=== PATIENT | male | born 1950 | race Caucasian/White ===

== ENCOUNTER 2024-01-20 02:32 | Inpatient (IN) ==
[2024-01-20] MEDS: SODIUM CHLORIDE 0.9% 500 ML IV STA (02:59)
[2024-01-20] MEDS: ASPIRIN CHEW 324 MG PO STA (03:00)
--- NOTE | 2024-01-20 03:12 | Emergency Department Note ---
Impression & Plan Chest pain, Heart disease, Left arm pain ED Provider Note CHIEF COMPLAINT: Chest pain HISTORY OF PRESENT ILLNESS: This 73-year-old male patient presents to the emergency department via private vehicle accompanied by his for evaluation of chest pain. The patient states he has been experiencing which has been more frequent for about a week. He states that today, he has had to take 8 nitroglycerin due to his pain. He states that 5 of these have been since after dinner this evening. The patient notes this morning when he woke, he had pain when he was going to do something active, but was unable to recall what he was doing. He states that then this afternoon he was climbing up onto his truck and developed pain at that time. He states he then developed pain after dinner and at bedtime, the pain returned and did not go away. He states that the pain in his chest is a burning sensation. He states that there is associated shortness of breath. He notes that the pain causes a numbness in the left arm which occasionally becomes achy. Pt. states he has had 10 stents placed in his heart at [facility] >10 years ago. He states he was told there were 2 100% blockages which are unable to be stented. He states he was supposed to see [facility] in 2020, but this appointment got cancelled due to Covid-19 pandemic. He notes he called back to [facility] but has not received a call back. Pt. denies any recent trauma or injury. REVIEW OF SYSTEMS: A 10 system review of systems was performed with positives and pertinent negatives listed in the history of present illness. All other systems were reviewed and are negative. ALLERGIES: Sulfa PHYSICAL EXAM: VITALS: Vitals are noted on the nurse's note and reviewed by myself. Vital signs stable. GENERAL: This is a 73 year old male, in no acute distress, nondiaphoretic, well- developed well-nourished. SKIN: The skin was without rashes, erythema, edema, or bruising. There is no tenting of the skin. Capillary refill less than 2 seconds. HEAD: Normocephalic atraumatic. EYES: Conjunctivae without injection, sclerae without icterus. NECK: Supple without nuchal rigidity. No lymphadenopathy. Cervical spine is nontender. No JVD. HEART: Regular rate and rhythm without murmurs gallops or rubs. LUNGS: Clear to auscultation bilaterally without wheezes, rales or rhonchi. No retractions or accessory muscle use. ABDOMEN: Positive bowel sounds x 4. Soft, nontender, without masses or organomegaly. Gardiner sign negative. No guarding or rebound tenderness. MUSCULOSKELETAL: No muscle atrophy, erythema, or edema noted. Full range of motion without joint tenderness in all extremities. No tenderness to palpation. Normal gait. Strength 5/5 throughout. NEURO: Patient was alert and oriented to person place and time. No focal neurological deficits. An order was placed for continuous medical accountant. The monitor showed a normal sinus rhythm at a ventricular rate of 65 bpm, per my interpretation. EKG was reviewed by myself and found to be normal sinus rhythm, at a rate of 63 beats per minute and per my interpretation reveals ST depression in V2-V5 with T wave inversions in V1, V2. No prior EKG available for comparison. Second EKG was completed by nursing staff due to the patient's complaint of worsening chest pain. Showed a normal sinus rhythm for ventricular rate of [address] depression and T wave inversions consistent with prior EKG. Chest x-ray. Findings: A chest x-ray was performed and revealed no pneumothorax, effusion, infiltrate, pulmonary edema, free air under the diaphragm, or wide mediastinum, per my interpretation EMERGENCY DEPARTMENT COURSE: The patient was seen and evaluated as above. The patient presents for chest pain. He has been taking nitroglycerin, noting he took about 8 doses throughout the day today. IV access was obtained, labs were drawn. Labs were reviewed. Per my interpretation, there is no leukocytosis or anemia. No thrombocytopenia. Renal, hepatic function and electrolytes without significant abnormality. Coags normal. Troponin elevated at 40.7. Lipase 18. Patient complained of worsening chest pain while here in the emergency department. Repeat EKG was obtained and was essentially unchanged. Patient had been medicated with aspirin and IV fluids. He was given Nitropaste with the complaints of recurrent chest pain. Chest x-ray as above. Per my interpretation, no acute abnormality. I discussed case with my attending physician. I did recommend admission for chest pain and positive troponin. I discussed the case with Dr. Liang, [facility] physician. He did agree to see and evaluate the patient for admission. Please see his dictation regarding ongoing management care. While in the department, I personally reevaluated the patient several times and each time the patient was found to be resting comfortably. The patient was educated upon management, educated upon todays findings/results, educated upon importance of follow up from today's visit, educated upon symptoms in which to return, had questions answered prior to discharge, verbalized understanding, and was discharged home in good condition. I attest that I have personally reviewed the patient medication list. I attest that I have reviewed the patient's blood pressure and it was found to be elevated. Referred to hospitalist for further management. GCS: 15 In the evaluation and treatment of this patient the following differential diagnoses were entertained: Cardiac ischemia, aortic dissection, pulmonary embolism, pneumothorax, pneumonia, pericarditis, myocarditis, esophageal rupture, GERD, cholecystitis, pancreatitis, musculoskeletal, as well as other pathologies. The chart was completed utilizing [employer] Speech voice recognition software. Grammatical errors, random word insertions, pronoun errors, and incomplete sentences are an occasional consequence of this system due to software limitations, ambient noise, and hardware issues. Any formal questions or concerns about the content, text, or information contained within the body of this dictation should be directly addressed to the provider for clarification. Past Med/Surg History Problem List (Updated 01/20/24 @ 04:41 by Yari Cordova PA-C) Left arm pain (Acute) Chest pain (Acute) Heart disease (Acute) Diverticula of colon Medical History Hyperlipidemia Diabetes Cardiac disease Surgical History (Updated 01/20/24 @ 03:08 by Yari Cordova PA-C) H/O heart artery stent Social History Smoking Status: Never smoker Preferred Language: Welsh Feels Safe at Home: Yes Allergies Allergies Allergy/AdvReac Type Severity Reaction Status Date / Time Sulfa (Sulfonamide AdvReac Mild liver & Verified 01/20/24 02:44 Antibiotics) kidney issues/failure, possible throat swelling Home Meds Home Medications Medication Instructions Recorded Confirmed amlodipine 2.5 mg tablet 2.5 mg PO QAM 01/20/24 01/20/24 aspirin 81 mg tablet,delayed 81 mg PO QPM 01/20/24 01/20/24 release atorvastatin 20 mg tablet 20 mg PO QPM 01/20/24 01/20/24 cholecalciferol (vitamin D3) 125 125 mcg PO WK 01/20/24 01/20/24 mcg (5,000 unit) tablet (Vitamin D3) clopidogrel 75 mg tablet 75 mg PO QAM 01/20/24 01/20/24 coenzyme Q10 100 mg capsule 100 mg PO DAILY 01/20/24 01/20/24 (CoQ-10) diclofenac sodium 1 % topical gel 2 g topical QID PRN Pain 01/20/24 01/20/24 empagliflozin 10 mg tablet 10 mg PO QAM 01/20/24 01/20/24 (Jardiance) ezetimibe 10 mg tablet 10 mg PO QAM 01/20/24 01/20/24 isosorbide dinitrate 5 mg tablet 5 mg PO DIRECTED PRN PRIOR TO 01/20/24 01/20/24 ACTIVITIES THAT PROVOKE ANGINA isosorbide mononitrate 60 mg 60 mg PO QAM 01/20/24 01/20/24 tablet,extended release 24 hr levothyroxine 50 mcg tablet 50 mcg PO DAILYBB 01/20/24 01/20/24 lisinopril 2.5 mg tablet 2.5 mg PO QAM 01/20/24 01/20/24 magnesium 250 mg tablet 250 mg PO DAILY 01/20/24 01/20/24 metoprolol succinate 100 mg 100 mg PO QPM 01/20/24 01/20/24 tablet,extended release 24 hr nitroglycerin 0.4 mg sublingual 0.4 mg sublingual DIRECTED PRN 01/20/24 01/20/24 tablet Chest Pain pantoprazole 40 mg tablet,delayed 40 mg PO DAILY PRN 01/20/24 01/20/24 release HEARTBURN/INDIGESTION ranolazine 1,000 mg 1,000 mg PO BID 01/20/24 01/20/24 tablet,extended release,12 hr turmeric root extract 500 mg tablet 500 mg PO 3XWK 01/20/24 01/20/24 Results & Data (ED) Vital Signs Vital Signs - 24 hr 01/20/24 02:36 01/20/24 02:44 Temperature 36.8 C Temperature Source Temporal Artery Scan Pulse Rate 65 65 Respiratory Rate 18 Respiratory Effort / Characteristics Non-Labored Spontaneous Respiratory Depth Normal Respiratory Pattern Regular Blood Pressure 149/79 H Blood Pressure Mean 102 Pulse Oximetry 98 Oxygen Delivery Method Room Air Sepsis Recent Fever Within 48 Hours No Sepsis New/Unexplained Change in Mental Status N/A Sepsis Action Taken by Nursing No Action Required Laboratory Data 01/20/24 02:51 01/20/24 02:51 Lab Results 01/20/24 Range/Units 02:51 WBC 10.65 (4.8-10.8) K/ul RBC 5.17 (4.70-6.10) M/uL Hgb 16.5 (14.0-18.0) g/dl Hct 49.4 (42.0-52.0) % MCV 95.6 (80.0-100.0) fL MCH 31.9 (25.0-34.0) pg MCHC 33.4 (32.0-36.0) g/dL RDW Std Deviation 47.1 H (36.4-46.3) fL RDW Coeff of Sylwia 13.2 (11.5-14.5) % Plt Count 191 (130-400) K/uL MPV 10.8 (9.4-12.4) fL Immature Gran % (Auto) 0.5 % Neut % (Auto) 87.3 % Lymph % (Auto) 7.7 % Rooks % (Auto) 4.3 % Eos % (Auto) 0.0 % Baso % (Auto) 0.2 % Neut # (Auto) 9.30 H (1.40-6.50) K/uL Lymph # (Auto) 0.82 L (1.20-3.40) K/uL Rooks # (Auto) 0.46 (0.11-0.59) K/uL Eos # (Auto) 0.00 (0.00-0.50) K/uL Baso # (Auto) 0.02 (0.00-0.20) K/uL Immature Gran # (Auto) 0.05 (0.01-0.20) K/uL PT 11.1 (9.0-12.0) Seconds INR 1.0 (0.9-1.1) APTT 24 (21-31) Seconds PTT Ratio 0.9 Sodium 139 (136-145) mmol/L Potassium 3.9 (3.5-5.1) mmol/L Chloride 104 (98-107) mmol/L Carbon Dioxide 26 (21-32) mmol/L Anion Gap 9 (3-11) BUN 22 (6-23) mg/dl Creatinine 1.28 (0.6-1.4) mg/dl Est Cr Clr Drug Dosing 54.7 ml/min Est GFR ( Amer) 64.8 ml/min Est GFR (Non-Af Amer) 55.9 ml/min BUN/Creatinine Ratio 17.2 (10-20) Glucose 163 H (70-99(Fasting)) mg/dl Calcium 9.9 (8.6-10.3) mg/dl Total Bilirubin 1.0 (0.2-1.0) mg/dl AST 15 (13-39) U/L ALT 18 (7-52) U/L Alkaline Phosphatase 64 (34-104) U/L Troponin I High Sens 40.7 H (0-20) pg/ml Total Protein 6.9 (6.0-8.3) gm/dl Albumin 4.5 (3.4-5.0) gm/dl Globulin 2.4 L (2.5-4.0) gm/dl Albumin/Globulin Ratio 1.9 (0.9-2) Lipase 18 (11-82) U/L Administered Medications Discontinued Medications Aspirin (Aspirin Chew 324 Mg) 324 mg PO NOW STA Stop: 01/20/24 02:52 Last Admin: 01/20/24 03:00 Dose: 324 mg Documented By: FELICIANO Sodium Chloride (Nss) 500 mls @ 999 mls/hr IV .Q31M STA Stop: 01/20/24 03:21 Last Infusion: 01/20/24 03:37 Dose: Infused Documented By: Admin: 01/20/24 02:59 Dose: 999 mls/hr Documented By: FELICIANO Nitroglycerin (Nitroglycerin 2% Ointment 30gm Tube) 1 inch EXT NOW ONE Stop: 01/20/24 03:32 Last Admin: 01/20/24 03:37 Dose: 1 inch Documented By: MYAH Discharge Plan Visit Data Chief Complaint: Cardiac Assessment Stated Complaint: CHEST PAIN ED Provider: Ernestina Alfredo ED Midlevel Provider: Yari Cordova Discharge Problem: Chest pain, Heart disease, Left arm pain Patient Disposition: Admitted As Inpatient Forms Stand Alone Forms: [facility] Prescriptions Prescriptions: No Action atorvastatin 20 mg tablet 20 mg PO QPM metoprolol succinate 100 mg tablet extended release 24 hr 100 mg PO QPM amlodipine 2.5 mg tablet 2.5 mg PO QAM clopidogrel 75 mg tablet 75 mg PO QAM aspirin 81 mg Tablet,Delayed Release (Dr/Ec) 81 mg PO QPM isosorbide mononitrate 60 mg tablet extended release 24 hr 60 mg PO QAM levothyroxine 50 mcg tablet 50 mcg PO DAILYBB pantoprazole 40 mg tablet,delayed release (DR/EC) 40 mg PO DAILY PRN (Reason: HEARTBURN/INDIGESTION) nitroglycerin 0.4 mg tablet, sublingual 0.4 mg sublingual DIRECTED PRN (Reason: Chest Pain) magnesium 250 mg Tablet 250 mg PO DAILY lisinopril 2.5 mg tablet 2.5 mg PO QAM isosorbide dinitrate 5 mg tablet 5 mg PO DIRECTED PRN (Reason: PRIOR TO ACTIVITIES THAT PROVOKE ANGINA) ezetimibe 10 mg tablet 10 mg PO QAM coenzyme Q10 [CoQ-10] 100 mg Capsule 100 mg PO DAILY ranolazine 1,000 mg tablet extended release 12 hr 1,000 mg PO BID diclofenac sodium [Voltaren] 1 % Gel 2 g TOPICAL QID PRN (Reason: Pain) cholecalciferol (vitamin D3) [Vitamin D3] 125 mcg (5,000 unit) Tablet 125 mcg PO WK Jardiance 10 mg tablet 10 mg PO QAM turmeric root extract 500 mg Tablet 500 mg PO 3XWK Rx Instructions: MON, WED, & FRI Referrals Referrals: Benja Velasquez [Primary Care Provider] -
[2024-01-20 03:13] LABS: Basophils # (auto) 0.02 K/uL (0.00-0.20); Basophils % (auto) 0.2 %; Hematocrit (blood only) 49.4 % (42.0-52.0); Hemoglobin 16.5 g/dl (14.0-18.0); Immature Granulocytes # (auto) 0.05 K/uL (0.01-0.20); Immature Granulocytes % (auto) 0.5 %; Lymphocytes # (auto) 0.82 K/uL (1.20-3.40); Lymphocytes % (auto) 7.7 %; Mean Corpuscular Hemoglobin 31.9 pg (25.0-34.0); Mean Corpuscular Hgb Conc 33.4 g/dL (32.0-36.0); Mean Corpuscular Volume 95.6 fL (80.0-100.0); Mean Platelet Volume 10.8 fL (9.4-12.4); Monocytes # (auto) 0.46 K/uL (0.11-0.59); Monocytes % (auto) 4.3 %; Neutrophils % (auto) 87.3 %; Platelet Count 191 K/uL (130-400); RDW Coefficient of Variation 13.2 % (11.5-14.5); RDW Standard Deviation 47.1 fL (36.4-46.3); Red Blood Count 5.17 M/uL (4.70-6.10); White Blood Count 10.65 K/ul (4.8-10.8)
[2024-01-20 03:24] LABS: Albumin Globulin Ratio 1.9 (0.9-2); Albumin Level 4.5 gm/dl (3.4-5.0); BUN Creatinine Ratio 17.2 (10-20); Calcium 9.9 mg/dl (8.6-10.3); Creatinine Clr Calc Pharmacy 54.7 ml/min; Est GFR (African American) 64.8 ml/min; Est GFR (Non-African American) 55.9 ml/min; Globulin 2.4 gm/dl (2.5-4.0); Potassium 3.9 mmol/L (3.5-5.1); Total Protein 6.9 gm/dl (6.0-8.3)
[2024-01-20 03:29] LABS: Troponin I High Sensitivity 40.7 pg/ml (0-20)
[2024-01-20] MEDS: NITROGLYCERIN 2% OINTMENT 30GM TUBE EXT ONE (03:37)
[2024-01-20 03:44] LABS: Partial Thromboplastin Ratio 0.9; Partial Thromboplastin Time 24 Seconds (21-31); Prothrombin Time 11.1 Seconds (9.0-12.0)
[2024-01-20 04:32] LABS: Magnesium 1.9 mg/dl (1.7-2.4)
--- NOTE | 2024-01-20 04:43 | History & Physical Report ---
Date of Service January 20, 2024 Assessment & Plan (1) NSTEMI (non-ST elevated myocardial infarction): Plan: hx CAD status post stent PVD hypertension, slightly elevated hyperlipidemia on statin Rx DM 2 on oral medications, well-controlled as of recent hemoglobin A1c of 7 last September 2023 past tobacco abuse Admit to PCU Continue antiplatelet Rx, beta-felicia, statin Rx IV heparin TTE, Cardiology consult : NSTEMI N.p.o. in anticipation of ischemic workup ISS BG goal 1 10-1 40 DVT prophylaxis. IV heparin Full code Patient requesting updates providers. Ms. Naye Gee, contact #[phone]. Text document was generated using [employer] voice recognition software. It may contain grammatical or spelling errors. Kindly contact undersigned for clarification of any documentation item in question. History of Present Illness Chief Complaint: Chest pain Primary Care Provider: Benja Velasquez History obtained from patient, family, and records. Medical history significant for CAD status post stent, PVD, hypertension, hyperlipidemia, ROGERS not on CPAP, DM 2 on oral medications, past tobacco abuse. 1 week history of worsening of usual anginal pain symptoms. Substernal pain going to the neck and arm. Incomplete relief with nitroglycerin. Would happen even at rest which is unusual for him. May be related to increased exertion secondary to pulled muscle in the right leg last week. Compliant with home medications. Chest pain relieved by nitroglycerin administration at the ER. Medical History as above Surgical History : None Family History : COPD, heart disease Personal/Social history : Past tobacco abuse, occasional EtOH intake, [employer] Allergies Allergy/AdvReac Type Severity Reaction Status Date / Time Sulfa (Sulfonamide AdvReac Mild liver & Verified 01/20/24 02:44 Antibiotics) kidney issues/failure, possible throat swelling Home Medications Medication Instructions Recorded Confirmed Type amlodipine 2.5 mg tablet 2.5 mg PO QAM 01/20/24 01/20/24 History aspirin 81 mg tablet,delayed 81 mg PO QPM 01/20/24 01/20/24 History release atorvastatin 20 mg tablet 20 mg PO QPM 01/20/24 01/20/24 History cholecalciferol (vitamin D3) 125 125 mcg PO WK 01/20/24 01/20/24 History mcg (5,000 unit) tablet (Vitamin D3) clopidogrel 75 mg tablet 75 mg PO QAM 01/20/24 01/20/24 History coenzyme Q10 100 mg capsule 100 mg PO DAILY 01/20/24 01/20/24 History (CoQ-10) diclofenac sodium 1 % topical gel 2 g topical QID PRN Pain 01/20/24 01/20/24 History empagliflozin 10 mg tablet 10 mg PO QAM 01/20/24 01/20/24 History (Jardiance) ezetimibe 10 mg tablet 10 mg PO QAM 01/20/24 01/20/24 History isosorbide dinitrate 5 mg tablet 5 mg PO DIRECTED PRN PRIOR TO 01/20/24 01/20/24 History ACTIVITIES THAT PROVOKE ANGINA isosorbide mononitrate 60 mg 60 mg PO QAM 01/20/24 01/20/24 History tablet,extended release 24 hr levothyroxine 50 mcg tablet 50 mcg PO DAILYBB 01/20/24 01/20/24 History lisinopril 2.5 mg tablet 2.5 mg PO QAM 01/20/24 01/20/24 History magnesium 250 mg tablet 250 mg PO DAILY 01/20/24 01/20/24 History metoprolol succinate 100 mg 100 mg PO QPM 01/20/24 01/20/24 History tablet,extended release 24 hr nitroglycerin 0.4 mg sublingual 0.4 mg sublingual DIRECTED PRN 01/20/2401/19 History tablet Chest Pain pantoprazole 40 mg tablet,delayed 40 mg PO DAILY PRN 01/20/24 01/20/24 History release HEARTBURN/INDIGESTION ranolazine 1,000 mg 1,000 mg PO BID 01/20/24 01/20/24 History tablet,extended release,12 hr turmeric root extract 500 mg tablet 500 mg PO 3XWK 01/20/24 01/20/24 History Past Med/Surg History Problem List Dyslipidemia, goal LDL below 70 HTN, goal below 130/80 ASCVD (arteriosclerotic cardiovascular disease) NSTEMI (non-ST elevated myocardial infarction) Left arm pain (Acute) Chest pain (Acute) Heart disease (Acute) Diverticula of colon Medical History Hyperlipidemia Diabetes Cardiac disease Surgical History H/O heart artery stent Social History Smoking Status: Former smoker Hx Alcohol Use: No Hx Substance Use: Yes Last Used Substance: Days (ago) Preferred Language: Syriac Communication Ability: Effective Bakery Team Member Required: No Beliefs That Will Affect Care: None Current Living Situation: Spouse Feels Safe at Home: Yes Safety Concerns: Feels Safe At This Time Assistive Devices: Glasses Review of Systems Review of Systems: As per HPI, all other systems reviewed and negative Physical Exam Physical Exam: GENERAL: Comfortable, pleasant, no respiratory distress SKIN: Normal color, warm HEENT: Partial alopecia, pink palpebral conjunctivae, no ptosis, moist buccal mucosa NECK : Supple, no tenderness CHEST : CTA, no tenderness HEART : RRR, no obvious murmurs ABDOMEN: Some distention, nontender EXTREMITIES : No LE swelling, minimal R thigh tenderness, no other conspicuous deformities noted NEUROLOGIC : Coherent, no facial asymmetry, no other gross focality Results & Data Results & Data Vital Signs (Past 12 Hours) Vital Signs Temp Pulse Resp BP Pulse Ox O2 Del Method 01/20/24 02:44 65 01/20/24 02:36 36.8 C 65 18 149/79 H 98 Room Air Laboratory Results Laboratory Results WBC 10.65 K/ul (4.8-10.8) 01/20/24 02:51 RBC 5.17 M/uL (4.70-6.10) 01/20/24 02:51 Hgb 16.5 g/dl (14.0-18.0) 01/20/24 02:51 Hct 49.4 % (42.0-52.0) 01/20/24 02:51 MCV 95.6 fL (80.0-100.0) 01/20/24 02:51 MCH 31.9 pg (25.0-34.0) 01/20/24 02:51 MCHC 33.4 g/dL (32.0-36.0) 01/20/24 02:51 RDW Std Deviation 47.1 fL (36.4-46.3) H 01/20/24 02:51 RDW Coeff of Sylwia 13.2 % (11.5-14.5) 01/20/24 02:51 Plt Count 191 K/uL (130-400) 01/20/24 02:51 MPV 10.8 fL (9.4-12.4) 01/20/24 02:51 Immature Gran % (Auto) 0.5 % 01/20/24 02:51 Neut % (Auto) 87.3 % 01/20/24 02:51 Lymph % (Auto) 7.7 % 01/20/24 02:51 [place] % (Auto) 4.3 % 01/20/24 02:51 Eos % (Auto) 0.0 % 01/20/24 02:51 Baso % (Auto) 0.2 % 01/20/24 02:51 Neut # (Auto) 9.30 K/uL (1.40-6.50) H 01/20/24 02:51 Lymph # (Auto) 0.82 K/uL (1.20-3.40) L 01/20/24 02:51 [place] # (Auto) 0.46 K/uL (0.11-0.59) 01/20/24 02:51 Eos # (Auto) 0.00 K/uL (0.00-0.50) 01/20/24 02:51 Baso # (Auto) 0.02 K/uL (0.00-0.20) 01/20/24 02:51 Immature Gran # (Auto) 0.05 K/uL (0.01-0.20) 01/20/24 02:51 PT 11.1 Seconds (9.0-12.0) 01/20/24 02:51 INR 1.0 (0.9-1.1) 01/20/24 02:51 APTT 24 Seconds (21-31) 01/20/24 02:51 PTT Ratio 0.9 01/20/24 02:51 Sodium 139 mmol/L (136-145) 01/20/24 02:51 Potassium 3.9 mmol/L (3.5-5.1) 01/20/24 02:51 Chloride 104 mmol/L (98-107) 01/20/24 02:51 Carbon Dioxide 26 mmol/L (21-32) 01/20/24 02:51 Anion Gap 9 (3-11) 01/20/24 02:51 BUN 22 mg/dl (6-23) 01/20/24 02:51 Creatinine 1.28 mg/dl (0.6-1.4) 01/20/24 02:51 Est Cr Clr Drug Dosing 54.7 ml/min 01/20/24 02:51 Est GFR ( Amer) 64.8 ml/min 01/20/24 02:51 Est GFR (Non-Af Amer) 55.9 ml/min 01/20/24 02:51 BUN/Creatinine Ratio 17.2 (10-20) 01/20/24 02:51 Glucose 163 mg/dl (70-99(Fasting)) H 01/20/24 02:51 Calcium 9.9 mg/dl (8.6-10.3) 01/20/24 02:51 Magnesium 1.9 mg/dl (1.7-2.4) 01/20/24 02:51 Total Bilirubin 1.0 mg/dl (0.2-1.0) 01/20/24 02:51 AST 15 U/L (13-39) 01/20/24 02:51 ALT 18 U/L (7-52) 01/20/24 02:51 Alkaline Phosphatase 64 U/L (34-104) 01/20/24 02:51 Troponin I High Sens 40.7 pg/ml (0-20) H 01/20/24 02:51 Total Protein 6.9 gm/dl (6.0-8.3) 01/20/24 02:51 Albumin 4.5 gm/dl (3.4-5.0) 01/20/24 02:51 Globulin 2.4 gm/dl (2.5-4.0) L 01/20/24 02:51 Albumin/Globulin Ratio 1.9 (0.9-2) 01/20/24 02:51 Lipase 18 U/L (11-82) 01/20/24 02:51 Diagnostic Findings Chest x-ray as per my interpretation no congestion EKG as per my interpretation : Rate 70, NSR, LAD, LAFB, RBBB, no ischemia
[2024-01-20] MEDS ORDERED: NITROGLYCERIN SL 0.4 MG/TAB TAB SL PRN (04:46)
[2024-01-20] MEDS ORDERED: GLUCAGON FOR INJ 1 MG VIAL SQ PRN (04:46)
[2024-01-20] MEDS ORDERED: DEXTROSE 50% 50 ML SYRINGE IV PRN (04:46)
[2024-01-20] MEDS ORDERED: GLUCOSE 40% GEL 15 GM TUBE PO PRN (04:46)
[2024-01-20] MEDS ORDERED: CARBOHYDRATES FOR HYPOGLYCEMIA PO PRN (04:46)
[2024-01-20] MEDS ORDERED: GLUCOSE 10 TAB/TUBE PO PRN (04:46)
[2024-01-20] MEDS ORDERED: LORazepam 0.5 MG TAB PO PRN (04:47)
[2024-01-20] MEDS ORDERED: traMADol HCL 50 MG TABLET PO PRN (04:47)
[2024-01-20] MEDS ORDERED: ACETAMINOPHEN 325 MG TAB PO PRN (04:47)
[2024-01-20] MEDS ORDERED: PROMETHAZINE HCL 6.25 MG in SODIUM CHLORIDE 0.9% 50 ML IV PRN (04:47)
[2024-01-20] MEDS: ACETAMINOPHEN 325 MG TAB PO STA (05:18)
--- OUTSIDE RECORDS SUMMARY | 2024-01-20 05:19 | External Medical Summary ---
Author Name Unknown Address Unknown Organization [id number]:[facility] [place] [address] [place] [id number] Laboratory Report Ordering Provider Test Date Status FRANCOISE ANSARI 10/20/2023 10:36:39 Final Observation Date Value Abnormality Reference (Units ) Status TSH 10/20/2023 10:36:39 1.26 0.27-4.20 (uIU/mL) Final Performing Location [facility] - [address] [place] [id number]
--- OUTSIDE RECORDS SUMMARY | 2024-01-20 05:19 | External Medical Summary | Summary of Care ---
Author Name Unknown Organization [facility] Address [address] [place] [address] Phone [phone] Care Team Providers Care Hand Stitcher Name Role Phone Halima Velasquez MD Primary Care Provider [phone] [phone] Encounter Details Date Type Department Care Team (Late st Contact Info) Description 09/10/2023 Result Scan Unspecified Department <No scans attached> Allergies Active Allergy Reactions Criticality Noted Date Comments Sulfa Antibiotics 12/20/2015 Liver and kidney issues,possible throat swelling documented as of this encounter (statuses as of 09/15/2023) Medications Medication Sig Dispensed Refills Start Date End Date Status Aspirin 81 MG Tablet Take 1 Tablet by mouth in the morning. 0 Active clopidogrel (PLAVIX) 75 MG Tablet Take 1 Tablet by mouth in the morning. 0 Active Coenzyme Q10 (CO Q 10) 10 MG CAPS Take by mouth. 0 Active pantoprazole (PROTONIX) 40 MG TBEC Take 1 Tablet by mouth as needed. 0 Active ezetimibe (ZETIA) 10 MG Tablet Take 1 Tablet by mouth in the morning. 0 Active levothyroxine (LEVOXYL) 50 MCG Tablet 0 02/16/2017 Active Empagliflozin 10 MG Oral Tablet Take 1 Tablet by mouth in the morning. 0 Active Magnesium 400 MG TABS Take by mouth 250 mg . 0 Active nitroglycerin (NITROSTAT) 0.[address] 1 Tablet under the tongue every 5 minutes as needed for Pain, Chest. 0 Active Vitamin D 125 MCG (5000 UT) Oral Capsule Take by mouth once a week. 0 Active Diclofenac Sodium 1 % External Gel Apply topically to affected area. Use as directed 0 Active Atorvastatin Calcium 20 MG Oral Tablet (Lipitor) 0 08/29/2020 Active Ranolazine ER 1000 MG Oral Tablet Extended Release 12 Hour (Ranexa) Take 1 Tablet by mouth 2 times a day. 180 Tablet 3 06/08/2021 Active Turmeric 500 MG Oral Capsule Take 1 Capsule by mouth once a day on Friday, Friday, and Friday only. 0 Active documented as of this encounter (statuses as of 09/15/2023) Active Problems Problem Noted Date Diagnosed Date Ischemic cardiomyopathy 09/11/2023 H/O class III angina pectoris 09/11/2023 Dyslipidemia, goal LDL below 70 09/11/2023 H/O dysplastic nevus 09/05/2020 Overview: Moderate-focally severely atypical nevus (L anterior thigh 08/2020) Primary osteoarthritis of both shoulders 021 Primary osteoarthritis of left foot 07/11/2020 Trochanteric bursitis of right hip 07/11/2020 Actinic keratosis 02/08/2019 Overview: Efudex (face 02/08) Diabetic polyneuropathy asso ciated with type 2 diabetes mellitus Type 2 diabetes mellitus wit hout complication, without long-term current use of insulin Sleep apnea HTN, goal below 130/80 ASCVD (arteriosclerotic cardiovascular disease) Pure hypercholesterolemia documented as of this encounter (statuses as of 09/15/2023) Immunizations Name Administration Dates Next Due Seasonal Influenza, PF, 6 M & above, IM , (FluLaval or Fluzone) 07/02/2012 documented as of this encounter Social History Tobacco Use Types Packs/Day Years Used Date Smoking Tobacco: Former Smokeless Tobacco: Former Chew Quit: 04/16/2008 Alcohol Use Standard Drinks/Week Comments Yes 0 (1 standard drink = 0.6 oz pur e alcohol) "very little" Sex and Gender Information Value Date Recorded Sex Assigned at Not on file Gender Identity Not on file Sexual Orientation Not on file Job Start Date Occupation Industry Not on file Not on file Not on file documented as of this encounter Plan of Treatment Upcoming Encounters Date Type Department Care Team (Late st Contact Info) Description 12/03/2023 7:40 AM EDT Office Visit Dermatology [facility] [address] [place] [address] Jessie Brar PA-C [address] [place] [address] [place] [address] Scheduled Procedures Name Priority Associated Diagnoses Date/Ti me COLONOSCOPY FLEXIBLE PROXIMA L DIAGNOSTIC Recall Encounter for screening colonoscopy Health Maintenance Due Date Last Done Comments Pneumococcal Vaccine: 65+ Years (1 of 2 - PCV) 1958 Depression Screening 1964 Diabetic Foot Exam 1970 Hepatitis C Screening 1970 DTaP,Tdap,and Td Vaccines (1 - Tdap) 1971 Cologuard 1997 Sigmoidoscopy 1997 Zoster Vaccines (1 of 2) 2002 Fecal Occult Blood Test 12/17/2014 12/18/19 14, 06/04/2011, 02/14/2010, Additional history exists AAA Screening 2017 COVID-19 Vaccine ( season) 2023 Influenza Vaccine (FLU shot) (#1) 2023 07/02/2012 HbA1c 01/29/2024 07/31/2023, 02/21, 10/21/2022, Additional history exists Albumin/Creatinine Ratio 03/06/2024 023, 06/11/2022, 03/19/2021, Additional history exists TSH 03/06/2024 03/06/2023, 05/24, 11/01/2021, Additional history exists Diabetic Eye Exam 03/28/2024 03/28/2023 GFR 07/31/2024 07/31/2023, 02/21, 10/21/2022, Additional history exists Colonoscopy 12/26/2025 12/27/2015 Colorectal Cancer Screening 12/26/2025 GARDASIL-HPV IMMUNIZATION SERIES Aged Out No longer eligible based on patient's age to complete this topic Hepatitis B Aged Out No longer eligi ble based on patient's age to complete this topic MENINGOCOCCAL (MENACTRA/MENVEO) Aged Out No longer eligible based on patient's age to complete this topic documented as of this encounter Medical Devices Not on filedocumented as of this encounter Procedures Procedure Name Priority Date/Time Associated Diagnosis Comments HOLTER SCANNED RESULT 09/10/2023 documented in this encounter Results * HOLTER SCANNED RESULT (09/10/2023) 09/10/2023 No Physician Data Unknown HOLTER documented in this encounter Care Teams Hand Stitcher Relationship Specialty Start Date End Date Halima Velasquez MD [address] [place] [address] [place] [address] PCP - General 11/20/06 documented as of this encounter
--- OUTSIDE RECORDS SUMMARY | 2024-01-20 05:19 | External Medical Summary | Summary of Care ---
Author Name Unknown Organization [facility] Address [address] [place] [address] Phone [phone] Care Team Providers Care Sr. Consultant Name Role Phone Halima Velasquez MD Primary Care Provider [phone] Reason for Visit * Reason Comments Outpatient Testing Encounter Details Date Type Department Care Team (Late st Contact Info) Description 10/20/2023 10:30 AM EDT Laboratory Laboratory [address] [place] [address] [facility] [address] [place] [address] HTN, goal below 140/90; DM type 2, not at goal (HCC); Bradycardia; Hypothyroidism; Dyslipidemia, goal LDL below 160 Allergies Active Allergy Reactions Criticality Noted Date Comments Sulfa Antibiotics 12/20/2015 Liver and kidney issues,possible throat swelling documented as of this encounter (statuses as of 10/20/2023) Medications Medication Sig Dispensed Refills Start Date [...] Friday, Friday, and Friday only. 0 Active Metoprolol Succinate ER 100 MG Oral Tablet Extended Release 24 Hour (toPROL XL) Take 1 Tablet by mouth in the morning. 0 08/15/2023 Active amLODIPine Besylate 2.5 MG Oral Tablet (Norvasc) Take 1 Tablet by mouth in the morning. 0 08/15/2023 Active Lisinopril 2.5 MG Oral Tablet (Prinivil) Take 1 Tablet by mouth in the morning. 0 07/21/2023 Active Isosorbide Mononitrate ER 60 MG Oral Tablet Extended Release 24 Hour (Imdur) Take 1 Tablet by mouth in the morning. 31 Tablet 5 09/11/2023 Active Isosorbide Dinitrate 5 MG Oral Tablet (Isordil) Take one tablet by prior prior to activities that provoke angina 31 Tablet 5 09/11/2023 Active documented as of this encounter (statuses as of 10/20/2023) Active Problems Problem Noted Date Diagnosed Date [...] as of this encounter (statuses as of 10/20/2023) Immunizations Name Administration Dates Next Due Seasonal [...] 12/03/2023 7:40 AM EDT Office Visit Dermatology [address] [place] [address] Jessie Brar PA-C [address] [place] [address] [place] [address] Pending Results Name Type Priority Associated Diagnoses Date /Time HEMOGLOBIN A1C Lab Routine HTN, goal below 140/90 DM type 2, not at goal (HCC) Bradycardia Hypothyroidism Dyslipidemia, goal LDL below 160 10/20/2023 10:36 AM EDT COMPREHENSIVE METABOLIC PANEL Lab Routine HTN, goal below 140/90 DM type 2, not at goal (HCC) Bradycardia Hypothyroidism Dyslipidemia, goal LDL below 160 10/20/2023 10:36 AM EDT TSH Lab Routine HTN, goal below 140/90 DM type 2, not at goal (HCC) Bradycardia Hypothyroidism Dyslipidemia, goal LDL below 160 10/20/2023 10:36 AM EDT T3, FREE Lab Routine HTN, goal below 140/90 DM type 2, not at goal (HCC) Bradycardia Hypothyroidism Dyslipidemia, goal LDL below 160 10/20/2023 10:36 AM EDT T4, FREE Lab Routine HTN, goal below 140/90 DM type 2, not at goal (HCC) Bradycardia Hypothyroidism Dyslipidemia, goal LDL below 160 10/20/2023 10:36 AM EDT Scheduled Procedures Name Priority Associated Diagnoses Date/Ti [...] Screening 2017 COVID-19 Vaccine ( season) 2023 HbA1c 01/29/2024 07/31/2023, 02/21, 10/21/2022, Additional history exists Influenza Vaccine (FLU shot) (Season Ended) 2024 07/02/2012 Albumin/Creatinine Ratio 03/06/2024 023, 06/11/2022, 03/19/2021, Additional [...] Not on filedocumented as of this encounter Visit Diagnoses Diagnosis HTN, goal below 140/90 Unspecified essential hypertension DM type 2, not at goal (HCC) Type II or unspecified type diabetes mellitus without mention of complication, not stated as uncontrolled Bradycardia Other specified cardiac dysrhythmias Hypothyroidism Unspecified hypothyroidism Dyslipidemia, goal LDL below 160 Other and unspecified hyperlipidemia documented in this encounter Care Teams Sr. Consultant Relationship Specialty Start Date End Date Halima Velasquez MD [address] [place] [address] [place] [address] PCP - General 11/20/06 documented as of this encounter
--- OUTSIDE RECORDS SUMMARY | 2024-01-20 05:19 | External Medical Summary | Summary of Care ---
Author Name Unknown Organization [facility] Address [address] [place] [address] Phone [phone] Care Team Providers Care Engineering Systems Analyst Name Role Phone Halima Velasquez MD Primary Care Provider [phone] Encounter Details Date Type Department Care Team (Late st Contact Info) Description 12/15/2023 Population Health External Data Unspecified Department Allergies Active Allergy Reactions Criticality Noted Date Comments Sulfa Antibiotics 12/20/2015 Liver and kidney issues,possible throat swelling documented as of this encounter (statuses as of 12/16/2023) Medications Medication Sig Dispensed Refills Start Date End Date Status Aspirin 81 MG Tablet Take 1 Tablet by mouth in the morning. Active clopidogrel (PLAVIX) 75 MG Tablet Take 1 Tablet by mouth in the morning. Active Coenzyme Q10 (CO Q 10) 10 MG CAPS Take by mouth. Active pantoprazole (PROTONIX) 40 MG TBEC Take 1 Tablet by mouth as needed. Active ezetimibe (ZETIA) 10 MG Tablet Take 1 Tablet by mouth in the morning. Active levothyroxine (LEVOXYL) 50 MCG Tablet 02/16/2017 Active Empagliflozin 10 MG Oral Tablet Take 1 Tablet by mouth in the morning. Active Magnesium 400 MG TABS Take by mouth 250 mg . Active nitroglycerin (NITROSTAT) 0.[address] 1 Tablet under the tongue every 5 minutes as needed for Pain, Chest. Active Vitamin D 125 MCG (5000 UT) Oral Capsule Take by mouth once a week. Active Diclofenac Sodium 1 % External Gel Apply topically to affected area. Use as directed Active Atorvastatin Calcium 20 MG Oral Tablet (Lipitor) 08/29/2020 Active Ranolazine ER 1000 MG Oral Tablet Extended Release 12 Hour (Ranexa) Take 1 Tablet by mouth 2 times a day. 180 Tablet 3 06/08/2021 Active Turmeric 500 MG Oral Capsule Take 1 Capsule by mouth once a day on Friday, Friday, and Friday only. Active Metoprolol Succinate ER 100 MG Oral Tablet Extended Release 24 Hour (toPROL XL) Take 1 Tablet by mouth in the morning. 08/15/2023 Active amLODIPine Besylate 2.5 MG Oral Tablet (Norvasc) Take 1 Tablet by mouth in the morning. 08/15/2023 Active Lisinopril 2.5 MG Oral Tablet (Prinivil) Take 1 Tablet by mouth in the morning. 07/21/2023 Active Isosorbide Mononitrate ER 60 MG Oral Tablet Extended Release 24 Hour (Imdur) Take 1 Tablet by mouth in the morning. 31 Tablet 5 09/11/2023 Active Isosorbide Dinitrate 5 MG Oral Tablet (Isordil) Take one tablet by prior prior to activities that provoke angina 31 Tablet 5 09/11/2023 Active documented as of this encounter (statuses as of 12/16/2023) Active Problems Problem Noted Date Diagnosed Date [...] as of this encounter (statuses as of 12/16/2023) Immunizations Name Administration Dates Next Due Seasonal Influenza, PF, 6 M & above, IM , (FluLaval or Fluzone) 07/02/2012 documented as of this encounter Social History Tobacco Use Types Packs/Day Years Used Date Smoking Tobacco: Former Smokeless Tobacco: Former Chew Quit: 04/16/2008 Alcohol Use Standard Drinks/Week Comments Yes 0 (1 standard drink = 0.6 oz pur e alcohol) "very little" Utilities Answer Date Recorded Do you have trouble paying y our heating, water, or electric bill? (Adult - for ages 18 years and over) Not on file 12/09/2023 Is your family able to pay t he heat, water, or electric bill? (Household - for ages 0-17 years) Not on file 12/09/2023 Does your family have access to good internet? (Household - for ages 0-17 years) Not on file 12/09/2023 Social Connections Answer Date Recorded How often do you feel lonely or isolated from those around you? (Adult - for ages 18 years and over) Not on file 12/09/2023 Sex and Gender Information Value Date Recorded Sex Assigned at Not on file Gender Identity Not on file Sexual Orientation Not on file Job Start Date Occupation Industry Not on file Not on file Not on file documented as of this encounter Plan of Treatment Upcoming Encounters Date Type Department Care Team (Late st Contact Info) Description 02/25/2024 7:40 AM EDT Office Visit Dermatology [address] [place] [address] Jessie Brar PA-C [address] [place] [address] [place] [address] Scheduled Procedures Name Priority Associated Diagnoses Date/Ti [...] ( season) 2023 Influenza Vaccine (FLU shot) (Season Ended) 2024 07/02/2012 Albumin/Creatinine Ratio 03/06/2024 023, 06/11/2022, 03/19/2021, Additional history exists HbA1c 04/20/2024 10/20/2023, 02/0 01/2024, 03/06/2023, Additional history exists GFR 10/19/2024 10/20/2023, 02/0 01/2024, 03/06/2023, Additional history exists TSH 10/19/2024 10/20/2023, 02/21, 06/11/2022, Additional history exists Diabetic Eye Exam 11/10/2024 11/11/2023, , 03/28/2023 Colonoscopy 12/26/2025 12/27/2015 Colorectal Cancer Screening 12/26/2025 [...] Not on filedocumented as of this encounter Care Teams Engineering Systems Analyst Relationship Specialty Start Date End Date Halima Velasquez MD [address] [place] [address] [place] [address] PCP - General 11/20/06 documented as of this encounter
--- OUTSIDE RECORDS SUMMARY | 2024-01-20 05:19 | External Medical Summary ---
Author Name Unknown Address Unknown Organization [id number]:[facility] [place] [address] [facility] [address] Laboratory Report Ordering Provider Test Date Status FRANCOISE ANSARI 10/20/2023 10:36:39 Final Observation Date Value Abnormality Reference (Units ) Status HbA1C 10/20/2023 10:36:39 7.0 Above high normal 4. 0-5.6 (%) Final The use of HbA1c to monitor glycemic status is based on normal hemoglobin and HbA composition. This test should not be used in patients with abnormal hemoglobin that affects the half life of the red blood cell or the in vivo glycation rates. Glucose, estimated average 10/20/2023 10:36:39 154 Above high normal <126 (mg/dL) Fin al Performing Location [facility] [place] [address] [facility] [address]
--- OUTSIDE RECORDS SUMMARY | 2024-01-20 05:19 | External Medical Summary | Summary of Care ---
Author Name Unknown Organization [facility] Address [address] [place] [address] Phone [phone] Care Team Providers Care Caustic Liquor Maker Name Role Phone Halima Velasquez MD Primary Care Provider [phone] [phone] Encounter Details Date Type Department Care Team (Late st Contact Info) Description 01/13/2024 Population Health External Data Unspecified Department Allergies Active Allergy Reactions Criticality Noted Date Comments Sulfa Antibiotics 12/20/2015 Liver and kidney issues,possible throat swelling documented as of this encounter (statuses as of 01/16/2024) Medications Medication Sig Dispensed Refills Start Date [...] as of this encounter (statuses as of 01/16/2024) Active Problems Problem Noted Date Diagnosed Date [...] as of this encounter (statuses as of 01/16/2024) Immunizations Name Administration Dates Next Due Seasonal [...] 02/25/2024 7:40 AM EDT Office Visit Dermatology [address] [place] [address] Jessie Brar PA-C [address] [place] [address] [place] [address] Scheduled Procedures Name Priority Associated Diagnoses Date/Ti [...] season) 2023 Influenza Vaccine (FLU shot) (#1) 2024 07/02/2012 Albumin/Creatinine Ratio 03/06/2024 023, 06/11/2022, 03/19/2021, Additional history exists HbA1c 04/20/2024 10/20/2023, 02/0 01/2024, 03/06/2023, Additional history exists GFR 10/19/2024 10/20/2023, 02/0 01/2024, 03/06/2023, Additional history exists TSH 10/19/2024 10/20/2023, 02/21, 06/11/2022, Additional history exists Diabetic Eye Exam 11/10/2024 11/11/2023, , 03/28/2023 Colonoscopy 12/26/2025 12/27/2015 Colorectal Cancer Screening 12/26/2025 *BASELINE EKG FOR HTN Completed 09/10/2022, 021 HPV (Gardasil) Vaccine Aged Out No lo nger eligible based on patient's age to complete this topic Hepatitis B Vaccine Aged Out No longe r eligible based on patient's age to complete this topic MENINGOCOCCAL (MENACTRA/MENVEO) Aged Out No longer eligible based on patient's age to complete this topic documented as of this encounter Medical Devices Not on filedocumented as of this encounter Care Teams Caustic Liquor Maker Relationship Specialty Start Date End Date Halima Velasquez MD [address] [place], [place] [address] [place] [address] PCP - General 11/20/06 documented as of this encounter
--- OUTSIDE RECORDS SUMMARY | 2024-01-20 05:19 | External Medical Summary | Summary of Care ---
Author Name Unknown Organization [facility] Address [address] [place] [address] Phone [phone] Care Team Providers Care Developing Machine Tender Name Role Phone Halima Velasquez MD Primary Care Provider [phone] Reason for Visit * Reason Comments Outpatient Testing Encounter Details Date Type Department Care Team (Late st Contact Info) Description 10/20/2023 10:30 AM EDT Laboratory Laboratory [address] [place] [address] [facility] [address] [place] [address] HTN, goal below 140/90; DM type 2, [...] 12/03/2023 7:40 AM EDT Office Visit Dermatology [address] [place] [address] Jessie Brar PA-C [address] [place] [address] [place] [address] Pending Results Name Type Priority Associated Diagnoses [...] hyperlipidemia documented in this encounter Care Teams Developing Machine Tender Relationship Specialty Start Date End Date Halima Velasquez MD [address] [place] [address] [place] [address] PCP - General 11/20/06 documented as of this encounter
--- OUTSIDE RECORDS SUMMARY | 2024-01-20 05:19 | External Medical Summary | Summary of Care ---
Author Name Unknown Organization [facility] Address [address] [place] [address] Phone [phone] Care Team Providers Care Hydrocrane Operator Name Role Phone Halima Velasquez MD Primary Care Provider [phone] Reason for Visit * Reason Comments Follow Up 6 month follow up. M edication changes with PCP to aid angina. Angina less frequent but still ongoing- once every other day for 10-15 minutes. 48 hour holter monitor completed last week. Episode of syncope a few months ago when waking up to use the bathroom at night- woke him up. Denies palpitations, dizziness, SOB and edema. Encounter Details Date Type Department Care Team (Latest Contact Info) Description 09/11/2023 8:30 AM EDT Office Visit Cardiology [address] [place] [address] Eliezer Veras PA-C [address] [place] [address] ASCVD (arteriosclerotic cardiovascular disease)*; Dyslipidemia, goal LDL below 70; HTN, goal below 130/80; H/O class III angina pectoris; Ischemic cardiomyopathy Allergies Active Allergy Reactions Criticality Noted Date Comments Sulfa Antibiotics 12/20/2015 Liver and kidney issues,possible throat swelling documented as of this encounter (statuses as of 09/11/2023) Medications Medication Sig Dispensed Refills Start Date End Date Status Aspirin 81 MG Tablet Take 1 Tablet by mouth in the morning. 0 Active clopidogrel (PLAVIX) 75 MG Tablet Take 1 Tablet by mouth in the morning. 0 Active Coenzyme Q10 (CO Q 10) 10 MG CAPS Take by mouth. 0 Acti ve pantoprazole (PROTONIX) 40 MG TBEC Take 1 Tablet by mouth as needed. 0 Active ezetimibe (ZETIA) 10 MG Tablet Take 1 Tablet by mouth in the morning. 0 Active levothyroxine (LEVOXYL) 50 MCG Tablet 0 7 Active Empagliflozin 10 MG Oral Tablet Take [...] Calcium 20 MG Oral Tablet (Lipitor) 0 1 Active Ranolazine ER 1000 MG Oral Tablet Extended Release 12 Hour (Ranexa) Take 1 Tablet by mouth 2 times a day. 180 Tablet 3 1 Active Turmeric 500 MG Oral Capsule Take 1 Capsule by mouth once a day on Friday, Friday, and Friday only. 0 Active Metoprolol Succinate ER 100 MG Oral Tablet Extended Release 24 Hour (toPROL XL) Take 1 Tablet by mouth in the morning. 0 4 Active amLODIPine Besylate 2.5 MG Oral Tablet (Norvasc) Take 1 Tablet by mouth in the morning. 0 4 Active Lisinopril 2.5 MG Oral Tablet (Prinivil) Take 1 Tablet by mouth in the morning. 0 4 Active Isosorbide Mononitrate ER 60 MG Oral Tablet Extended Release 24 Hour (Imdur) Take 1 Tablet by mouth in the morning. 31 Tablet 5 4 Active Isosorbide Dinitrate 5 MG Oral Tablet (Isordil) Take one tablet by prior prior to activities that provoke angina 31 Tablet 5 4 Active metoprolol tartrate (LOPRESSOR) 50 MG Tablet Take 1 Tablet by mouth in the morning and 1 Tablet before bedtime. 0 09/11/19 24 Discontinued(Med ication/Dose Changed) lisinopril (PRINIVIL) 5 MG Tablet Take 0.5 Tablets by mouth in the morning. 0 09/11/19 24 Discontinued(Med ication List Clean Up) Isosorbide Mononitrate 10 MG TABS Take by mouth 5 mg 2 times a day . 0 0 09/11/19 24 Discontinued Isosorbide Dinitrate 5 MG Oral Tablet (Isordil) Take 2 Tablets by mouth every morning. 0 4 09/11/19 24 Discontinued documented as of this encounter (statuses as of 09/11/2023) Active Problems Problem Noted Date Diagnosed Date [...] as of this encounter (statuses as of 09/11/2023) Immunizations Name Administration Dates Next Due Seasonal [...] on file documented as of this encounter Last Filed Vital Signs Vital Sign Reading Time Taken Comments Blood Pressure 96/54 09/11/2023 8:42 AM EDT Pulse 60 09/11/2023 8:42 AM EDT Temperature - - Respiratory Rate 16 09/11/2023 8:42 AM EDT Oxygen Saturation - - Inhaled Oxygen Concentration - - Weight 89.8 kg (197 lb 14.4 oz) 09/11/2023 8:42 AM EDT Height - - Body Mass Index 29.87 07/11/2020 2:48 PM EST documented in this encounter Progress Notes * Eliezer Veras PA-C - 09/11/2023 8:30 AM EDT History of Present Illness: Lucas Gee is a very pleasant 73 year old male who recently experienced increased angina symptoms, occurring faster and more frequent, especially in the cold, aided by sublingual nitroglycerin. Patient evaluated by PCP with multiple medication changes made. Metoprolol tartrate (50 BID) was changed to metoprolol succinate at 100 mg once per day. Amlodipine 2.5 mg/day was added. And Nitro-Dur patches were added. I called and personally spoke with the patient on August 20, 2023 after receiving documentation by PCP. At that time, following the above medication changes, patient noted significant improvement in his angina symptoms, without further angina or need for sublingual nitroglycerin at that time. Patient advised to apply the nitro patch in the morning and remove the patch at bedtime instead of leaving on for 24 hours/day to allow for nitro free interval to minimize risk of tolerance. Notes self discontinuation of Nitro-Dur patches after a couple of days due to headaches and hypotension. Patient evaluated by PCP about two weeks ago. 48-hour Holter monitor obtained at [facility], results not available. Twice during the monitoring period he had angina, "your chest just gets a brain freeze." One time he had angina when working with some logs, trying to get them to roll. Notes taking one sublingual nitroglycerin with prompt relief then being able to work the rest of the day, to a certain extent, without difficulty. Notes symptoms when he first starts doing something, wondering if the resting bradycardia is a contributing factor. Notes activity shortly after eating as well as the cold weather will aggravate angina. No palpitations. No fluid retention. No syncope. Complete Review of Systems is as stated above, negative, or noncontributory. Complex issues include: Chronic ischemic heart disease. Status post multiple coronary interventions with severe 3 vessel disease initially identified 2006. Evaluation at that time demonstrated 100% mid left anterior descending occlusion, 85% mid left circumflex occlusion and diffuse right coronary disease. Coronary interventions include stenting of left circumflex, multiple coronary interventions of the right coronary artery initially in 2006. Patient has undergone multiple interventions since including left main stent and right coronary artery stent 2012, serial interventions of the right coronary artery 2012 and 2017. Stent within a stent for ostial left main stenosis 2013. Last diagnostic coronary angiography 2019, 100% left anterior descending, 100% ostial right coronary artery with patent left main stent and poor surgical targets. Poor surgical targets were noted through teleconference though with [facility] offering surgical option. Chronic angina pectoris, NYHA class 3 Ischemic cardiomyopathy with mild left ventricular dysfunction Hyperlipidemia Type 2 diabetes mellitus Obstructive sleep apnea currently not on therapy Mild bilateral internal carotid artery disease Strong familial history of premature coronary disease Patient Active Problem List Diagnosis Code Actinic keratosis L57.0 Diabetic polyneuropathy associated with type 2 diabetes mellitus ([facility]) E11.42 Type 2 diabetes mellitus without complication, without long-term current use of insulin ([facility]) E11.9 Sleep apnea G47.30 HTN, goal below 130/80 I10 ASCVD (arteriosclerotic cardiovascular disease) I25.10 Pure hypercholesterolemia E78.00 Primary osteoarthritis of both shoulders M19.011, M19.012 Primary osteoarthritis of left foot M19.072 Trochanteric bursitis of right hip M70.61 H/O dysplastic nevus Z86.018 Ischemic cardiomyopathy I25.5 H/O class III angina pectoris Z86.79 Dyslipidemia, goal LDL below 70 E78.5 Past Surgical History: Procedure Laterality Date CARDIAC STENT PLACEMENT, ATHERECTOMY, 1 VESSEL 02/25/2018 2 stents placed at [facility] in [place] COLONOSCOPY, DIAGNOSTIC (RECTUM) 12/27/2015 diverticulosis, repeat 10 yrs/[facility] CT ABDOMEN/PELVIS 06/03/15 MISCELLANEOUS ORDER ([facility] ONLY) 06/13/14 8 heart stents placed Family History Problem Relation Age of Onset Heart disease Mother COPD Mother Osteoarthritis Mother Heart disease Father Osteoarthritis Father Heart disease Son x 2 Social History Socioeconomic History Marital status: Spouse name: Not on file Number of children: Not on file Years of education: Not on file Highest education level: Not on file Occupational History Not on file Tobacco Use Smoking status: Former Smokeless tobacco: Former Types: Chew Quit date: 04/16/2008 Vaping Use Vaping Use: Never used Substance and Sexual Activity Alcohol use: Yes Comment: "very little" Drug use: Never Sexual activity: Not on file Other Topics Concern Not on file Social History Narrative Not on file Social Determinants of Health Financial Resource Strain: Not on file Food Insecurity: Not on file Transportation Needs: Not on file Physical Activity: Not on file Stress: Not on file Social Connections: Not on file Intimate Partner Violence: Not on file Housing Stability: Not on file Review of patient's allergies indicates: Allergen Reactions Sulfa Antibiotics Liver and kidney issues,possible throat swelling Current Outpatient Medications Medication Sig Dispense Refill Metoprolol Succinate ER 100 MG Oral Tablet Extended Release 24 Hour (toPROL XL) Take 1 Tablet by mouth in the morning. Isosorbide Dinitrate 5 MG Oral Tablet (Isordil) Take 1 Tablet by mouth every morning. amLODIPine Besylate 2.5 MG Oral Tablet (Norvasc) Take 1 Tablet by mouth in the morning. Lisinopril 2.5 MG Oral Tablet (Prinivil) Take 1 Tablet by mouth in the morning. Aspirin 81 MG Tablet Take 1 Tablet by mouth in the morning. clopidogrel (PLAVIX) 75 MG Tablet Take 1 Tablet by mouth in the morning. Coenzyme Q10 (CO Q 10) 10 MG CAPS Take by mouth. pantoprazole (PROTONIX) 40 MG TBEC Take 1 Tablet by mouth as needed. ezetimibe (ZETIA) 10 MG Tablet Take 1 Tablet by mouth in the morning. levothyroxine (LEVOXYL) 50 MCG Tablet Empagliflozin 10 MG Oral Tablet Take 1 Tablet by mouth in the morning. Magnesium 400 MG TABS Take by mouth 250 mg . nitroglycerin (NITROSTAT) 0.[address] 1 Tablet under the tongue every 5 minutes as needed forPain, Chest. Isosorbide Mononitrate 10 MG TABS Take by mouth 5 mg 2 times a day . Vitamin D 125 MCG (5000 UT) Oral Capsule Take by mouth once a week. Diclofenac Sodium 1 % External Gel Apply topically to affected area. Use as directed Atorvastatin Calcium 20 MG Oral Tablet (Lipitor) Ranolazine ER 1000 MG Oral Tablet Extended Release 12 Hour (Ranexa) Take 1 Tablet by mouth 2 times a day. 180 Tablet 3 Turmeric 500 MG Oral Capsule Take 1 Capsule by mouth once a day on Friday, Friday, and Friday only. No current facility-administered medications for this visit. OBJECTIVE/PHYSICAL EXAMINATION: BP 96/54 | Pulse 60 | Resp 16 | Wt 89.8 kg (197 lb 14.4 oz) | BMI 29.87 kg/m | BSA 2.08 m Blood pressure on my examination was 110/60 General: A&Ox3. NAD. Comfortable and cooperative Skin: No rash Eyes: PER. Conjunctiva pink, sclera clear. HENT: Normocephalic. Atraumatic. Neck: Carotid bruits. No JVD. No HJR. Heart: Regular at 56 bpm. Soft early systolic murmur at the LLSB. No diastolic murmur. No rub Lungs: Clear to auscultation. Abdomen: +BS. Soft. Nontender. No masses. No organomegaly. Extremities: No clubbing, cyanosis, or edema. Pulses: radial=2/4, posterior tibial=2/4. Limited neurological examination: No focal deficit. Data: June 19, 2021 TTE Interpretation Summary (as per Dr. Taylor): The left ventricular cavity size is normal. The qualitative LV ejection fraction is 55- 59% (normal). The left ventricular wall motion is normal. The right ventricular systolic function is normal as assessed by tricuspid annular plane systolic excursion (TAPSE) (normal >1.7 cm). The left atrium is normal sized. The right atrial size is normal. The left ventricular diastolic function is mildly abnormal (grade I). Mild aortic valve sclerosis is present. Aortic stenosis is absent Lipid Panel Results: Results for orders placed or performed in visit on 07/31/23 LIPID PANEL WITH DIRECT LDL IF TG IS HIGH Result Value Ref Range Triglycerides 98 <=174 mg/dL Cholesterol 130 <200 mg/dL HDL Cholesterol 46 >39 mg/dL Non-HDL Cholesterol 84 <=159 mg/dL LDL Cholesterol 64 <=129 mg/dL IMPRESSION: 73 year old male with severe little traverse vessel coronary artery disease status post multiplevessel interventions as detailed above. Patient with CCS Class 3 angina pectoris. No history or evidence of congestive heart failure. 48 hour Holter monitor results pending. Options of management discussed. Via shared decision-making, we will proceed as follows: Obtain 48 hour Holter results Avoid strenuous activity shortly after eating Utilize a mask while out in the cold Stop isosorbide mononitrate 5 mg twice per day Start Imdur 60 mg daily in the morning Add Isordil 5 mg 20 minutes prior to activities which provoked angina. Hold lisinopril if hypotension (SBP less than 100) observed Cardiology follow-up in 3 months or as needed. ER with emergencies. Eliezer Veras PA-C Department of Cardiology I spent a total of 40-54 minutes (exact time 50 mins) on the date of service in preparation, delivery, and documentation of the care provided to Lucas Gee excluding any time spent in the performance of separately billed services. This visit involved medical care services related to at least one serious condition or complex condition requiring ongoing care. This chart was completed in part ut [employer] Speech Voice Recognition Software. Grammatical errors, random word insertions, prounoun errors, and incomplete sentences are an occasional consequence of this system due to software limitations, ambient noise, and hardware issues. Any formal questions or concerns about the content, text, or information contained within the body of this dictation should be directly addressed to theprovider for clarification. documented in this encounter Nursing Notes * Juanpablo Alvarado LPN - 09/11/2023 8:42 AM EDT Patient identified by full name and date of Chief Complaint Patient presents with Follow Up 6 month follow up. Medication changes with PCP to aid angina. Angina less frequent but still ongoing- once every other day for 10-15 minutes. 48 hour holter monitor completed last week. Episode of syncope a few months ago when waking up to use the bathroom at night- woke him up. Denies palpitations, dizziness, SOB and edema. Examination Room: 4 Name: Lucas Gee Date of : (1950). Reason for Visit: Follow up Interim Hospitalization(s): Denies Problems/Concerns: See chief complaint Chest Pain/SOB: See chief complaint [facility] Discussed: Yes [facility] is a way you can talk to your provider online through e-mail. Would you like to sign up? I can activate it for you? ALREADY ACTIVE Patient was instructed to not get up on the exam table until directed and assisted by their provider; patient is to remain seated in the chair/ wheelchair/ exam table for fall prevention and safety reasons. Patient is aware to have assistance to step down off exam table with personnel. Patient voiced full comprehension of instructions. documented in this encounter Plan of Treatment Upcoming Encounters Date Type Department Care Team (Late st Contact Info) Description 12/03/2023 7:40 AM EDT Office Visit Dermatology [address] [place] [address] Jessie Brar PA-C [address] [place] [address] [place] [address] Scheduled Procedures Name Priority Associated Diagnoses Date/Ti [...] exists AAA Screening 2017 COVID-19 Vaccine ( - season) 2023 Influenza Vaccine (FLU shot) (#1) [...] as of this encounter Visit Diagnoses Diagnosis ASCVD (arteriosclerotic cardiovascular disease)- Primary Unspecified cardiovascular disease Dyslipidemia, goal LDL below 70 Other and unspecified hyperlipidemia HTN, goal below 130/80 Unspecified essential hypertension H/O class III angina pectoris Personal history of other diseases of circulatory system Ischemic cardiomyopathy Other specified forms of chronic ischemic heart disease documented in this encounter Care Teams Hydrocrane Operator Relationship Specialty Start Date End Date Halima Velasquez MD [address] [place] [address] [place] [address] PCP - General 11/20/06 documented as of this encounter
--- OUTSIDE RECORDS SUMMARY | 2024-01-20 05:19 | External Medical Summary | Summary of Care ---
Author Name Unknown Organization [facility] Address [address] [place] [address] Phone [phone] Care Team Providers Care Juke Box Servicer Name Role Phone Halima Velasquez MD Primary Care Provider [phone] Encounter Details Date Type Department Care Team (Late st Contact Info) Description 08/22/2023 Orders Only [facility] [place] [address] *DO NOT REMOVE THIS DEPARTMENT* [place] [address] Requisition, External Cardiology [address] [place] [address] Syncope and collapse*; Bradycardia; Presence of coronary angioplasty implant and graft Allergies Active Allergy Reactions Criticality Noted Date Comments Sulfa Antibiotics 12/20/2015 Liver and kidney issues,possible throat swelling documented as of this encounter (statuses as of 08/22/2023) Medications Medication Sig Dispensed Refills Start Date End Date Status Aspirin 81 MG Tablet Take 1 Tablet by mouth in the morning. 0 Active clopidogrel (PLAVIX) 75 MG Tablet Take 1 Tablet by mouth in the morning. 0 Active Coenzyme Q10 (CO Q 10) 10 MG CAPS Take by mouth. 0 Active metoprolol tartrate (LOPRESSOR) 50 MG Tablet Take 1 Tablet by mouth in the morning and 1 Tablet before bedtime. 0 Active pantoprazole (PROTONIX) 40 MG TBEC Take 1 Tablet by mouth as needed. 0 Active ezetimibe (ZETIA) 10 MG Tablet Take 1 Tablet by mouth in the morning. 0 Active levothyroxine (LEVOXYL) 50 MCG Tablet 0 02/16/2017 Active lisinopril (PRINIVIL) 5 MG Tablet Take 0.5 Tablets by mouth in the morning. 0 Active Empagliflozin 10 MG Oral Tablet Take 1 Tablet by mouth in the morning. 0 Active Magnesium 400 MG TABS Take by mouth 250 mg . 0 Active nitroglycerin (NITROSTAT) 0.[address] 1 Tablet under the tongue every 5 minutes as needed for Pain, Chest. 0 Active Isosorbide Mononitrate 10 MG TABS Take by mouth 5 mg 2 times a day . 0 08/05/2019 Active Vitamin D 125 MCG (5000 UT) [...] as of this encounter (statuses as of 08/22/2023) Active Problems Problem Noted Date Diagnosed Date H/O dysplastic nevus 09/05/2020 Overview: Moderate-focally severely atypical nevus (L anterior thigh 08/2020) Primary osteoarthritis of both shoulders 021 Primary osteoarthritis of left foot 07/11/2020 Trochanteric bursitis of right hip 07/11/2020 Actinic keratosis 02/08/2019 Overview: Efudex (face 02/08) Diabetic polyneuropathy asso ciated with type 2 diabetes mellitus Type 2 diabetes mellitus wit hout complication, without long-term current use of insulin Sleep apnea Hypertension Coronary arteriosclerosis Pure hypercholesterolemia documented as of this encounter (statuses as of 08/22/2023) Immunizations Name Administration Dates Next Due Seasonal [...] Care Team (Late st Contact Info) Description 09/11/2023 8:30 AM EDT Office Visit Cardiology [address] [place] [address] Eliezer Veras PA-C [address] [place] [address] 10/28/2023 9:30 AM EDT Office Visit Cardiology [address] [place] [address] Eliezer Veras PA-C [address] [place] [address] 12/03/2023 7:40 AM EDT Office Visit Dermatology [address] [place] [address] Jessie Brar PA-C [address] [place] [address] [place] [address] Scheduled Orders Name Type Priority Associated Diagnoses Orde r Schedule HOLTER COMPLETE (COMM PRAC) Holter Routine Syncope and collapse Bradycardia Presence of coronary angioplasty implant and graft Expected: 09/22/2023, Expires: 09/21/2024 Scheduled Procedures Name Priority Associated Diagnoses Date/Ti [...] history exists AAA Screening 2017 COVID-19 Vaccine (1 - 2022- season) 2023 Influenza Vaccine (FLU shot) (#1) [...] as of this encounter Visit Diagnoses Diagnosis Syncope and collapse- Primary Bradycardia Other specified cardiac dysrhythmias Presence of coronary angioplasty implant and graft Postsurgical percutaneous transluminal coronary angioplasty status documented in this encounter Care Teams Juke Box Servicer Relationship Specialty Start Date End Date Halima Velasquez MD [address] [place] [address] [place] [address] PCP - General 11/20/06 documented as of this encounter
--- OUTSIDE RECORDS SUMMARY | 2024-01-20 05:19 | External Medical Summary ---
Author Name Unknown Address Unknown Organization [id number]:[facility] [place] [address] [place] [address] Laboratory Report Ordering Provider Test Date Status FRANCOISE ANSARI 10/20/2023 10:36:39 Final Observation Date Value Abnormality Reference (Units ) Status T3, Free 10/20/2023 10:36:39 2.3 Below low normal 2.5 -4.3 (pg/mL) Final Performing Location [facility] - [address] [place] [address]
--- OUTSIDE RECORDS SUMMARY | 2024-01-20 05:19 | External Medical Summary | Summary of Care ---
Author Name Unknown Organization [facility] Address [address] [place] [address] Phone [phone] Care Team Providers Care Laboratory Tester Name Role Phone Halima Velasquez MD Primary Care Provider [phone] Encounter Details Date Type Department Care Team (Late st Contact Info) Description 11/11/2023 Population Health External Data Unspecified Department Allergies Active Allergy Reactions Criticality Noted Date Comments Sulfa Antibiotics 12/20/2015 Liver and kidney issues,possible throat swelling documented as of this encounter (statuses as of 11/12/2023) Medications Medication Sig Dispensed Refills Start Date [...] as of this encounter (statuses as of 11/12/2023) Active Problems Problem Noted Date Diagnosed Date [...] as of this encounter (statuses as of 11/12/2023) Immunizations Name Administration Dates Next Due Seasonal [...] 7:40 AM EDT Office Visit Dermatology [address] [place] [address] Jessie Brar PA-C [address] [place] [address] [place] [address] Scheduled Procedures Name Priority Associated Diagnoses Date/Ti [...] 2022- season) 2023 Influenza Vaccine (FLU shot) (Season Ended) 2024 07/02/2012 Albumin/Creatinine Ratio 03/06/2024 023, 06/11/2022, 03/19/2021, Additional history exists Diabetic Eye Exam 03/28/2024 03/28/2023 HbA1c 04/20/2024 10/20/2023, 01/2024, 03/06/2023, Additional history exists GFR 10/19/2024 10/20/2023, 01/2024, 03/06/2023, Additional history exists TSH 10/19/2024 10/20/2023, 02/21, 06/11/2022, Additional history exists Colonoscopy 12/26/2025 12/27/2015 Colorectal [...] filedocumented as of this encounter Care Teams Laboratory Tester Relationship Specialty Start Date End Date Halima Velasquez MD [address] [place] [address] [place] [address] PCP - General 11/20/06 documented as of this encounter
--- OUTSIDE RECORDS SUMMARY | 2024-01-20 05:19 | External Medical Summary | Summary of Care ---
Author Name Unknown Organization [facility] Address [address] [place] [address] Phone [phone] Care Team Providers Care Check Airman Name Role Phone Halima Velasquez MD Primary Care Provider +1 [phone] Encounter Details Date Type Department Care Team (Late st Contact Info) Description 09/18/2023 Population Health External Data Unspecified Department Allergies Active Allergy Reactions Criticality Noted Date Comments Sulfa Antibiotics 12/20/2015 Liver and kidney issues,possible throat swelling documented as of this encounter (statuses as of 09/23/2023) Medications Medication Sig Dispensed Refills Start Date [...] as of this encounter (statuses as of 09/23/2023) Active Problems Problem Noted Date Diagnosed Date [...] as of this encounter (statuses as of 09/23/2023) Immunizations Name Administration Dates Next Due Seasonal [...] 12/03/2023 7:40 AM EDT Office Visit Dermatology [address] [place] [address] Jessie Brar PA-C [address] [place] [address] [place] [address] Scheduled Procedures Name Priority Associated Diagnoses Date/Ti [...] COVID-19 Vaccine (1 - 2022- season) 2023 HbA1c 01/29/2024 07/31/2023, 02/21, 10/21/2022, [...] filedocumented as of this encounter Care Teams Check Airman Relationship Specialty Start Date End Date Halima Velasquez MD [address] [place] [address] [place] [address] PCP - General 11/20/06 documented as of this encounter
--- OUTSIDE RECORDS SUMMARY | 2024-01-20 05:19 | External Medical Summary | Summary of Care ---
Author Name Unknown Organization [facility] Address [address] [place] [address] Phone [phone] Care Team Providers Care Deburrer Name Role Phone Halima Velasquez MD Primary Care Provider +1 -[phone] Encounter Details Date Type Department Care Team (Late st Contact Info) Description 01/12/2024 Orders Only Outcomes Research Department [address] [place] [address] Viky Marques CHRA [employer] Research Other*[id number] Allergies Active Allergy Reactions Criticality Noted Date Comments Sulfa Antibiotics 12/20/2015 Liver and kidney issues,possible throat swelling documented as of this encounter (statuses as of 01/12/2024) Medications Medication Sig Dispensed Refills Start Date [...] as of this encounter (statuses as of 01/12/2024) Active Problems Problem Noted Date Diagnosed Date [...] as of this encounter (statuses as of 01/12/2024) Immunizations Name Administration Dates Next Due Seasonal [...] 02/25/2024 7:40 AM EDT Office Visit Dermatology [address] [place] [address] Jessie Brar PA-C [address] [place] [address] [place] [address] Scheduled Orders Name Type Priority Associated Diagnoses Orde r Schedule MYCODE SUBSEQUENT ADULT Lab Routine [employer]Code Research Other*[id number] Every 6 Months for 2 Occurrences starting 01/12/2024 until 01/31/2025 Scheduled Procedures Name Priority Associated Diagnoses Date/Ti [...] as of this encounter Visit Diagnoses Diagnosis MyCode Research Other*[id number] documented in this encounter Care Teams Deburrer Relationship Specialty Start Date End Date Halima Velasquez MD [address] [place] [address] [place] [address] PCP - General 11/20/06 documented as of this encounter
--- OUTSIDE RECORDS SUMMARY | 2024-01-20 05:19 | External Medical Summary ---
Author Name Unknown Address Unknown Organization [id number]:LAB[facility]ATORY [facility] [place] - [address] [facility] [place] [address] Laboratory Report Ordering Provider Test Date Status FRANCOISE ANSARI 10/20/2023 10:36:39 Final Observation Date Value Abnormality Reference (Units ) Status BUN 10/20/2023 10:36:39 13 6-20 (mg/dL) Final Creatinine 10/20/2023 10:36:39 1.2 0.6-1.2 (mg/dL) Final Glomerular filtration rate/1.73 sq M.predicted [Volume Rate/Area] in Serum, Plasma or Blood by Creatinine-based formula (CKD-EPI) 10/20/2023 10:36:39 63 >=60 (mL/min) Final eGFR is calculated based on the CKD-EPI 2020 equation Sodium 10/20/2023 10:36:39 139 135-146 (m mol/L) Final Potassium 10/20/2023 10:36:39 4.3 3.5-5.1 (m mol/L) Final Cl 10/20/2023 10:36:39 103 98-107 (mm ol/L) Final CO2 10/20/2023 10:36:39 26 22-32 (mmo l/L) Final Anion gap 10/20/2023 10:36:39 10 7-15 (mmol /L) Final Glucose 10/20/2023 10:36:39 166 Above high normal 70 -120 (mg/dL) Final Albumin 10/20/2023 10:36:39 3.8 3.8-5.0 (g /dL) Final AST (Aspartate aminotransferase) 10/20/2023 10:36:39 20 10-50 (U/L) Fin al Alk Phos 10/20/2023 10:36:39 76 35-130 (U/ L) Final Bilirubin, Total 10/20/2023 10:36:39 0.7 <=1 .2 (mg/dL) Final Calcium 10/20/2023 10:36:39 8.8 8.4-10.2 ( mg/dL) Final Protein 10/20/2023 10:36:39 5.8 Below low normal 6.0 -8.3 (g/dL) Final ALT (Alanine aminotransferase) 10/20/2023 10:36:39 20 10-50 (U/L) Raghavendra bowman Performing Location [facility]ORY [facility] [place] - [address] [facility] [address]
--- OUTSIDE RECORDS SUMMARY | 2024-01-20 05:19 | External Medical Summary ---
Author Name Unknown Address Unknown Organization K01:[facility] - [address] [place] [address] Laboratory Report Ordering Provider Test Date Status FRANCOISE ANSARI 10/20/2023 10:36:39 Final Observation Date Value Abnormality Reference (Units ) Status T4, Free 10/20/2023 10:36:39 1.2 0.9-1.7 (n g/dL) Final Performing Location [facility] - [address] [place] [address]
--- OUTSIDE RECORDS SUMMARY | 2024-01-20 05:20 | External Medical Summary ---
Author Name Unknown Address Unknown Organization [id number]:[facility] [place] [address] [place] [address] Laboratory Report Ordering Provider Test Date Status SARAH BHAT 07/31/2023 08:22:50 Final Observation Date Value Abnormality Reference (Units ) Status MYCODE SPECIMEN-SST 07/31/2023 08:22:50 Freezing of extracted DNA, whole blood and/or serum. Final Performing Location LABORATORY [facility] - [address] [place] [address]
--- OUTSIDE RECORDS SUMMARY | 2024-01-20 05:20 | External Medical Summary ---
Author Name Unknown Address Unknown Organization K01:[facility] [place] - [address] [facility] [address] Laboratory Report Ordering Provider Test Date Status FRANCOISE ANSARI 07/31/2023 08:22:50 Final Observation Date Value Abnormality Reference (Units ) Status WBC, Total 07/31/2023 08:22:50 8.21 4.00-10.80 (K/uL) Final RBC 07/31/2023 08:22:50 5.23 4.50-5.25 (M/uL) Final Hemoglobin 07/31/2023 08:22:50 17.0 Above high normal 14.0-16.8 (g/dL) Final HCT 07/31/2023 08:22:50 51.9 Above high normal 40.0-48.4 (%) Final MCV 07/31/2023 08:22:50 99.2 82.0-99.5 (fL) Final MCH 07/31/2023 08:22:50 32.5 27.0-34.0 (pg) Final MCHC 07/31/2023 08:22:50 32.8 32.0-36.0 (g/dL) Final RDW 07/31/2023 08:22:50 13.2 11.5-15.5 (%) Final Platelets 07/31/2023 08:22:50 201 140-400 (K/uL) Final MPV 07/31/2023 08:22:50 11.1 6.6-11.1 (fL) Final Nucleated erythrocytes/100 leukocytes [Ratio] in Blood by Automated count 07/31/2023 08:22:50 0 <=0 (/100 WBCs) Final Performing Location [facility] - [address] [place] [address]
--- OUTSIDE RECORDS SUMMARY | 2024-01-20 05:20 | External Medical Summary | Summary of Care ---
Author Name Unknown Organization [facility] Address [address] [place] [address] Phone [phone] Care Team Providers Care Usps Letter Carrier Name Role Phone Halima Velasquez MD Primary Care Provider +1 [phone] Reason for Visit * Reason Onset Date Comments Appointment 08/20/2023 Encounter Details Date Type Department Care Team (Late st Contact Info) Description 08/20/2023 Telephone Cardiology, [facility] [address] [place] [address] Eliezer Veras PA-C [address] [place] [phone] Appointment Allergies Active Allergy Reactions Criticality Noted Date Comments Sulfa Antibiotics 12/20/2015 Liver and kidney issues,possible throat swelling documented as of this encounter (statuses as of 08/20/2023) Medications Medication Sig Dispensed Refills Start Date [...] as of this encounter (statuses as of 08/20/2023) Active Problems Problem Noted Date Diagnosed Date [...] as of this encounter (statuses as of 08/20/2023) Immunizations Name Administration Dates Next Due Seasonal [...] on file documented as of this encounter Miscellaneous Notes * Telephone Encounter - Eliezer Veras PA-C - 08/20/2023 5:16 PM EST Patient called personally. Notes recently experiencing increased angina symptoms, occurring faster and more frequent, especially in the cold, aided by sublingual nitroglycerin. Notes recently being seen by PCP with metoprolol tartrate changed to metoprolol succinate 100 mg once per day, amlodipine 2.5 mg/day and nitro patches added. With medication changes patient notes significant improvement. No further angina or need for sublingual nitroglycerin since. Will continue current therapies as prescribed except I advised the patient to apply the nitro patch in the morning and remove the patch at bedtime instead of leaving on for 24 hours (allowing for nitro free interval to minimize risk of tolerance). Cardiology follow-up as scheduled in August or as needed. He will contact me with any interim issues. Eliezer Veras PA-C Department of Cardiology CC: PCP * Telephone Encounter - Sharmaine Jackson OSA - 08/20/2023 11:03 AM EST Spoke with Pt, appt moved up to September 10 with Eliezer in [place]. * Telephone Encounter - Dahlia Parks LPN - 08/20/2023 10:[address] Velasquez office calling asking if pt can be seen sooner with Eliezer Veras PA-C. Pt is seen primarily in [place] office. Dr Velasquez office is faxing most recent office visit note. Will scan to chart once received. Pt has follow up with Dr. Velasquez tomorrow. documented in this encounter Plan of Treatment Upcoming Encounters Date Type Department Care Team (Late st Contact Info) Description 09/11/2023 8:30 AM EDT Office Visit Cardiology [address] [place] [address] Eliezer Veras PA-C [address] [place] [address] 10/28/2023 9:30 AM EDT Office Visit Cardiology [address] [place] [address] Eliezer Veras PA-C [address] [place] [address] 12/03/2023 7:40 AM EDT Office Visit Dermatology [address] [place] [address] Jessie Brar PA-C [address] [place] [address] [place] [address] Scheduled Procedures Name Priority Associated Diagnoses Date/Ti [...] AAA Screening 2017 COVID-19 Vaccine ( - 2022- season) 2023 Influenza Vaccine (FLU [...] filedocumented as of this encounter Care Teams Usps Letter Carrier Relationship Specialty Start Date End Date Halima Velasquez MD [address] [place] [address] [place] [address] PCP - General 11/20/06 documented as of this encounter
--- OUTSIDE RECORDS SUMMARY | 2024-01-20 05:20 | External Medical Summary | Summary of Care ---
Author Name Unknown Organization [facility] Address [address] [place] [address] Phone [phone] Care Team Providers Care Binder Lockstitch Name Role Phone Halima Velasquez MD Primary Care Provider +1 -[phone] Reason for Visit * Reason Comments Outpatient Testing Encounter Details Date Type Department Care Team (Late st Contact Info) Description 07/31/2023 8:20 AM EST Laboratory Laboratory [address] [place] [id number] [place] [address] [email or web address] Other*[id number]; HTN, goal below 140/90; Dyslipidemia, goal LDL below 160; Screening for iron deficiency anemia; DM type 2, not at goal (HCC); Vitamin D deficiency; Screening for prostate cancer Allergies Active Allergy Reactions Criticality Noted Date Comments Sulfa Antibiotics 12/20/2015 Liver and kidney issues,possible throat swelling documented as of this encounter (statuses as of 07/31/2023) Medications Medication Sig Dispensed Refills Start Date [...] as of this encounter (statuses as of 07/31/2023) Active Problems Problem Noted Date Diagnosed Date [...] as of this encounter (statuses as of 07/31/2023) Immunizations Name Administration Dates Next Due Seasonal [...] Care Team (Late st Contact Info) Description 10/28/2023 9:30 AM EDT Office Visit Cardiology [address] [place] [address] Eliezer Veras PA-C [address] [place] [address] 12/03/2023 7:40 AM EDT Office Visit Dermatology [address] [place] [address] Jessie Brar PA-C [address] [place] [address] [place] [address] Pending Results Name Type Priority Associated Diagnoses Date /Time MYCODE SUBSEQUENT ADULT Lab Routine MyCode Research Other*[id number] 07/31/2023 8:22 AM EST LIPID PANEL WITH DIRECT LDL IF TG IS HIGH Lab Routine HTN, goal below 140/90 Dyslipidemia, goal LDL below 160 Screening for iron deficiency anemia DM type 2, not at goal (HCC) Vitamin D deficiency Screening for prostate cancer 07/31/2023 8:22 AM EST COMPREHENSIVE METABOLIC PANEL Lab Routine HTN, goal below 140/90 Dyslipidemia, goal LDL below 160 Screening for iron deficiency anemia DM type 2, not at goal (HCC) Vitamin D deficiency Screening for prostate cancer 07/31/2023 8:22 AM EST CBC Lab Routine HTN, goal below 140/90 Dyslipidemia, goal LDL below 160 Screening for iron deficiency anemia DM type 2, not at goal (HCC) Vitamin D deficiency Screening for prostate cancer 07/31/2023 8:22 AM EST HEMOGLOBIN A1C Lab Routine HTN, goal below 140/90 Dyslipidemia, goal LDL below 160 Screening for iron deficiency anemia DM type 2, not at goal (HCC) Vitamin D deficiency Screening for prostate cancer 07/31/2023 8:22 AM EST 25-HYDROXY VITAMIN D Lab Routine HTN, goal below 140/90 Dyslipidemia, goal LDL below 160 Screening for iron deficiency anemia DM type 2, not at goal (HCC) Vitamin D deficiency Screening for prostate cancer 07/31/2023 8:22 AM EST PSA Lab Routine HTN, goal below 140/90 Dyslipidemia, goal LDL below 160 Screening for iron deficiency anemia DM type 2, not at goal (HCC) Vitamin D deficiency Screening for prostate cancer 07/31/2023 8:22 AM EST MYCODE SST1 Lab Routine MyCode Research Other*[id number] 07/31/2023 8:22 AM EST MYCODE SST2 Lab Routine [employer] Research Other*[id number] 07/31/2023 8:22 AM EST Scheduled Procedures Name Priority Associated Diagnoses Date/Ti me COLONOSCOPY FLEXIBLE PROXIMA L DIAGNOSTIC Recall Encounter for screening colonoscopy Health Maintenance Due Date Last Done Comments COVID-19 Vaccine (#1) 1952 Pneumococcal Vaccine: 65+ Years (1 - PCV) 1958 Depression Screening 1964 Diabetic Foot Exam 1970 Hepatitis C Screening 1970 DTaP,Tdap,and Td Vaccines (1 - Tdap) 1971 Cologuard 1997 Sigmoidoscopy 1997 Zoster Vaccines (1 of 2) 2002 Hepatitis B (1 of 3 - Risk 3-dose series) 2012 Fecal Occult Blood Test 12/17/2014 12/18/19 14, 06/04/2011, 02/14/2010, Additional history exists AAA Screening 2017 Influenza Vaccine (FLU shot) (#1) 2023 07/02/2012 HbA1c 09/04/2023 03/06/2023, 05/0 06/2022, 06/11/2022, Additional history exists Albumin/Creatinine Ratio 03/06/2024 023, 06/11/2022, 03/19/2021, Additional history exists GFR 03/06/2024 03/06/2023, 0506/2022, 06/11/2022, Additional history exists TSH 03/06/2024 03/06/2023, 05/24, 11/01/2021, Additional history exists Diabetic Eye Exam 03/28/2024 03/28/2023 Colonoscopy 12/26/2025 12/27/2015 Colorectal Cancer Screening 12/26/2025 GARDASIL-HPV IMMUNIZATION SERIES Aged Out No longer eligible based on patient's age to complete this topic MENINGOCOCCAL (MENACTRA/MENVEO) Aged Out No longer eligible based on patient's age to complete this topic documented as of this encounter Medical Devices Not on filedocumented as of this encounter Visit Diagnoses Diagnosis MyCode Research Other*[id number] HTN, goal below 140/90 Unspecified essential hypertension Dyslipidemia, goal LDL below 160 Other and unspecified hyperlipidemia Screening for iron deficiency anemia DM type 2, not at goal (HCC) Type II or unspecified type diabetes mellitus without mention of complication, not stated as uncontrolled Vitamin D deficiency Unspecified vitamin D deficiency Screening for prostate cancer Special screening for malignant neoplasm of prostate documented in this encounter Care Teams Binder Lockstitch Relationship Specialty Start Date End Date Halima Velasquez MD [address] [place] [address] [place] [address] PCP - General 11/20/06 documented as of this encounter
--- OUTSIDE RECORDS SUMMARY | 2024-01-20 05:20 | External Medical Summary | Summary of Care ---
Author Name Unknown Organization [facility] Address [address] [place] [address] Phone [phone] Care Team Providers Care Schedule Checker Name Role Phone Halima Velasquez MD Primary Care Provider +1 -[phone] Encounter Details Date Type Department Care Team (Late st Contact Info) Description 08/12/2023 Population Health External Data Unspecified Department Allergies Active Allergy Reactions Criticality Noted Date Comments Sulfa Antibiotics 12/20/2015 Liver and kidney issues,possible throat swelling documented as of this encounter (statuses as of 08/13/2023) Medications Medication Sig Dispensed Refills Start Date [...] as of this encounter (statuses as of 08/13/2023) Active Problems Problem Noted Date Diagnosed Date [...] as of this encounter (statuses as of 08/13/2023) Immunizations Name Administration Dates Next Due Seasonal [...] 9:30 AM EDT Office Visit Cardiology [address] [place] [address] Eliezer Veras PA-C [address] [place] [address] 12/03/2023 7:40 AM EDT Office Visit Dermatology [address] [place] [address] Jessie Brar PA-C [address] [place] [address] [place] [address] Scheduled Procedures Name Priority Associated Diagnoses Date/Ti [...] filedocumented as of this encounter Care Teams Schedule Checker Relationship Specialty Start Date End Date Halima Velasquez MD [address] [place] [address] [place] [address] PCP - General 11/20/06 documented as of this encounter
--- OUTSIDE RECORDS SUMMARY | 2024-01-20 05:20 | External Medical Summary | Summary of Care ---
Author Name Unknown Organization [facility] Address [address] [place] [address] Phone [phone] Care Team Providers Care Wood Turning Lathe Operator Name Role Phone Halima Velasquez MD Primary Care Provider +1 -[phone] Reason for Visit * Reason Onset Date Comments Appointment 08/20/2023 Encounter Details Date Type Department Care Team (Late st Contact Info) Description 08/20/2023 Telephone Cardiology, [facility] [address] [place] [address] Eliezer Veras PA-C [address] [place] [phone] Appointment Allergies Active Allergy Reactions Criticality Noted [...] encounter Miscellaneous Notes * Telephone Encounter - Sharmaine Jackson OSA - 08/20/2023 11:03 AM EST Spoke with Pt, appt moved up to September 10 with Eliezer in [place]. * Telephone Encounter - Dahlia Parks LPN - 08/20/2023 10:[address] Velasquez office calling asking if pt can be seen sooner with Eliezer Veras PA-C. Pt is seen primarily in [place] office. Dr Velasquez office is faxing most recent office visit note. Will scan to chart once received. Pt has follow up with Dr. Velasquez tomorrow. documented in this encounter Plan of Treatment Upcoming Encounters Date Type Department Care Team (Late st Contact Info) Description 09/11/2023 8:30 AM EDT Office Visit Cardiology [address] [place] [address] Eliezer Veras PA-C [address] [place] [address] 10/28/2023 9:30 AM EDT Office Visit Cardiology [address] [place] [address] Eliezer Veras PA-C [address] [place] [address] 12/03/2023 7:40 AM EDT Office Visit Dermatology [address] [place] [address] Jessie Brar PA-C [address] [place] [address] [place] [address] Scheduled Procedures Name Priority Associated Diagnoses Date/Ti [...] filedocumented as of this encounter Care Teams Wood Turning Lathe Operator Relationship Specialty Start Date End Date Halima Velasquez MD [address] [place] [address] [place] [address] PCP - General 11/20/06 documented as of this encounter
--- OUTSIDE RECORDS SUMMARY | 2024-01-20 05:20 | External Medical Summary ---
Author Name Unknown Address Unknown Organization K01:LAB[facility]ATORY [facility] [place] - [address] [place] [address] Laboratory Report Ordering Provider Test Date Status FRANCOISE ANSARI 07/31/2023 08:22:50 Final Observation Date Value Abnormality Reference (Units ) Status Triglyceride 07/31/2023 08:22:50 98 <=174 ( mg/dL) Final Triglyceride Reference Range s (mg/dL):
<150 Acceptable
150-174 Borderline high
175-499 High
>=500 Very high Cholesterol 07/31/2023 08:22:50 130 <200 (mg /dL) Final Total Cholesterol Reference Ranges (mg/dL):
<200 Desirable
200-239 Borderline high
>=240 High HDL 07/31/2023 08:22:50 46 >39 (mg/dL ) Final HDL Cholesterol Reference Ra nges (mg/dL):
>=60 High (Desirable)
<50 Low (Undesirable) For Females
<40 Low (Undesirable) For Males NON-HDL CHOLESTEROL 07/31/2023 08:22:50 84 <=159 (mg/dL) Final Non-HDL Cholesterol Referenc e Range (mg/dL):
<100 Target level for high risk ASCVD patient
<130 Optimal for general population
130-159 Near optimal for general population
160-189 Borderline High
190-219 High
>=220 Very High LDL, (calculated) 07/31/2023 08:22:50 64 <= 129 (mg/dL) Final LDL Cholesterol Reference Ra nges (mg/dL):
<70 Target level for high risk ASCVD patient
<100 Optimal for general population
100-129 Near optimal for general population
130-159 Borderline high
160-189 High
>=190 Very high Performing Location LABORATORY [facility] [place] - [address] [facility] [address]
--- OUTSIDE RECORDS SUMMARY | 2024-01-20 05:20 | External Medical Summary ---
Author Name Unknown Address Unknown Organization K01:[facility] [facility] [place] [address] [facility] [place] [address] Laboratory Report Ordering Provider Test Date Status FRANCOISE ANSARI 07/31/2023 08:22:50 Final Observation Date Value Abnormality Reference (Units ) Status BUN 07/31/2023 08:22:50 16 6-20 (mg/dL) Final Creatinine 07/31/2023 08:22:50 1.3 Above high normal 0.6-1.2 (mg/dL) Final Glomerular filtration rate/1.73 sq M.predicted [Volume Rate/Area] in Serum, Plasma or Blood by Creatinine-based formula (CKD-EPI) 07/31/2023 08:22:50 60 >=60 (mL/min) Final eGFR is calculated based on the CKD-EPI 2020 equation SODIUM 07/31/2023 08:22:50 142 135-146 (m mol/L) Final Potassium 07/31/2023 08:22:50 4.4 3.5-5.1 (m mol/L) Final Cl 07/31/2023 08:22:50 104 98-107 (mm ol/L) Final CO2 07/31/2023 08:22:50 26 22-32 (mmo l/L) Final Anion gap 07/31/2023 08:22:50 12 7-15 (mmol /L) Final Glucose 07/31/2023 08:22:50 121 Above high normal 70 -120 (mg/dL) Final Albumin 07/31/2023 08:22:50 4.2 3.8-5.0 (g /dL) Final AST (Aspartate aminotransferase) 07/31/2023 08:22:50 17 10-50 (U/L) Fin al Alk Phos 07/31/2023 08:22:50 86 35-130 (U/ L) Final Bilirubin, Total 07/31/2023 08:22:50 0.9 <=1 .2 (mg/dL) Final Calcium 07/31/2023 08:22:50 9.5 8.4-10.2 ( mg/dL) Final Protein 07/31/2023 08:22:50 6.4 6.0-8.3 (g /dL) Final ALT (Alanine aminotransferase) 07/31/2023 08:22:50 20 10-50 (U/L) Raghavendra bowman Performing Location [facility] [place] [facility] [place] [address] [facility] [address]
--- OUTSIDE RECORDS SUMMARY | 2024-01-20 05:20 | External Medical Summary ---
Author Name Unknown Address Unknown Organization K01:LABORATORY [facility] [place] - [address] [facility] [address] Laboratory Report Ordering Provider Test Date Status ELANFRANCOISE 07/31/2023 08:22:50 Final Observation Date Value Abnormality Reference (Units ) Status HbA1C 07/31/2023 08:22:50 7.0 Above high normal 4. 0-5.6 (%) Final The use of HbA1c to monitor glycemic status is based on normal hemoglobin and HbA composition. This test should not be used in patients with abnormal hemoglobin that affects the half life of the red blood cell or the in vivo glycation rates. Glucose, estimated average 07/31/2023 08:22:50 154 Above high normal <126 (mg/dL) Raghavendra bowman Performing Location LABORATORY [facility] [place] - [address] [facility] [address]
--- OUTSIDE RECORDS SUMMARY | 2024-01-20 05:20 | External Medical Summary ---
Author Name Unknown Address Unknown Organization K01:[facility] - [address] [place] [address] Laboratory Report Ordering Provider Test Date Status FRANCOISE ANSARI 07/31/2023 08:22:50 Final Observation Date Value Abnormality Reference (Units ) Status PSA 07/31/2023 08:22:50 0.44 <4.10 (ng/ mL) Final Performing Location [facility] - [address] [place] [address]
--- OUTSIDE RECORDS SUMMARY | 2024-01-20 05:20 | External Medical Summary ---
Author Name Unknown Address Unknown Organization K01:[facility] [place] - [address] [place] [address] Laboratory Report Ordering Provider Test Date Status FRANCOISE ANSARI 07/31/2023 08:22:50 Final Deficient: <20 ng/mL
Ins ufficient: 20-29 ng/mL
Recommended/Optimum:30-50 ng/mL

Vitamin D intoxication is rare. If suspicious of Vitamin D toxicity, evaluation of serum Calcium and PTH is recommended. Observation Date Value Abnormality Reference (Units ) Status 25-OH Vitamin D total 07/31/2023 08:22:50 45 >19 (ng/mL) Final Performing Location [facility] - [address] [place] [address]
--- OUTSIDE RECORDS SUMMARY | 2024-01-20 05:20 | External Medical Summary ---
Author Name Unknown Address Unknown Organization K01:LABORATORY [facility] [place] - [address] [place] [address] Laboratory Report Ordering Provider Test Date Status SARAH BHAT 07/31/2023 08:22:50 Final Observation Date Value Abnormality Reference (Units ) Status MYCODE SPECIMEN-SST 07/31/2023 08:22:50 Freezing of extracted DNA, whole blood and/or serum. Final Performing Location [facility] - [address] [place] [address]
[2024-01-20] MEDS: LACTATED RINGER'S 1,000 ML IV ONE (05:22)
[2024-01-20] MEDS ORDERED: PANTOprazole 40 MG TAB PO PRN (05:25)
[2024-01-20] MEDS ORDERED: DICLOFENAC SOD 1% GEL 100 GM TUBE EXT PRN (05:25)
[2024-01-20] MEDS: HEPARIN SODIUM/DEXTROSE 25,000 UNITS/500 ML BAG IV SCH (05:40)
[2024-01-20] MEDS: Heparin IV Adult Wt-Based Standard *NO* INITIAL Bolus Protocol IV STA (05:41)
[2024-01-20 06:18] LABS: Chol HDL Ratio 2.6 (0-5)
--- NOTE | 2024-01-20 06:49 | XRay Report ---
XR chest 1V portable HISTORY: 73 years-old Male Chest pain, nonspecific COMPARISON: None TECHNIQUE: AP view of the chest FINDINGS: Cardiomediastinal and hilar silhouettes are within normal limits. Atherosclerosis of the aorta. No pn eumothorax, pleural effusion or airspace consolidation. The bones appear intact. IMPRESSION: No acute process. ACT 112: Negative or not required by law. The above report was generated using voice recognition software. It may contain grammatical, syntax o r spelling errors. Electronically signed by: Darien Pineda M.D. 01/20/2024 6:48 AM
--- NOTE | 2024-01-20 07:06 | Electrocardiogram Report ---
Test Reason : Blood Pressure : / mmHG Vent. Rate : 063 BPM Atrial Rate : 063 BPM P-R Int : 152 ms QRS Dur : 144 ms QT Int : 474 ms P-R-T Axes : 013 -83 107 degrees QTc Int : 485 ms Normal sinus rhythm Right bundle branch block Left anterior fascicular block Bifascicular block Septal infarct , age undetermined Abnormal ECG No previous ECGs available Confirmed by Alvin Perez ([id number]) on 01/20/2024 7:05:48 AM Referred By: REFERRED SELF Confirmed By:Alvin Perez
[2024-01-20] MEDS: LEVOTHYROXINE SODIUM 50 MCG TABLET PO SCH (07:44)
[2024-01-20] MEDS: INSULIN ASPART PER UNIT CHARGE SC SCH (07:50)
--- NOTE | 2024-01-20 08:13 | Cardiology Consultation ---
Date of Consultation January 20, 2024 Assessment & Plan (1) Chest pain: (2) NSTEMI (non-ST elevated myocardial infarction): (3) ASCVD (arteriosclerotic cardiovascular disease): (4) HTN, goal below 130/80: (5) Dyslipidemia, goal LDL below 70: Plan Complex 73-year-old male with severe multivessel coronary artery disease status post multiple prior coronary interventions as detailed below. At baseline, patient with CCS class III angina pectoris. Patient presents this admission with progressive chest discomfort suggesting unstable angina, also with symptoms possibly related to intermittent hypertensive urgency as well as reflux, currently using pantoprazole intermittently with some relief. Options of management discussed with patient initially and then with patient and . We specifically discussed medical management, stress testing, and diagnostic cardiac catheterization including the risks and benefits. Agree with use of IV heparin. Patient to be kept NPO for possible diagnostic cardiac catheterization later today. Recommend taking pantoprazole daily instead of as needed. I spent a total of 47 minutes on the date of service in preparation, delivery, and documentation of the care provided to this patient excluding any time spent in the performance of separately billed services. This visit was a split-shared visit with the substantive portion of the medical decision making performed by the supervising safety counselor/billing provider. Supervising Physician Co-Signing Physician Notes Patient was seen and personally examined. Assessment and plan as outlined above. 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 Last cath [facility] 2019 Previously class II angina pectoris at moderate workload on GDMT. Notes previous telemedicine conference with [facility] with surgical recommendations made. Recent decline in functional capacity and increasing anginal pattern of at least 1 weeks duration culminating in rest symptoms last evening relieved with 4 sublingual nitroglycerin then recurrence in the ER relieved with topical nitrates. Enzymes consistent with non-ST segment elevation myocardial infarction EKG is nondiagnostic secondary to bifascicular block Echocardiogram in comparison to prior study of 2020 demonstrates new wall motion abnormalities with hypokinesis of mid and apical septum and inferior wall. Discussed findings in detail with patient and family Recommended diagnostic cardiac catheterization. Will recommend transfer to tertiary center with [facility] given disease complexity. Transfer arrangements made I spent a total of 40minutes on the date of service in preparation, delivery, and documentation of the care provided to this patient excluding any time spent in the performance of separately billed services History of Present Illness Reason for Consultation: Chest pain Requesting Physician: Dr. Liang Attending Physician: Dr. Gutierrez History of Present Illness Mr. Lucas Gee is a 73-year-old male with complex coronary artery disease as summarized below. Approximately 1 month ago the patient was evaluated by his primary care provider and was noted to be mildly hypotensive at that time. Recommendations by PCP were to reduce lisinopril dosing to 3 days/week (MWF). After proximately 2 weeks the patient return to his prior dosing of lisinopril due to increased blood pressure with associated chest discomfort. Over the last week or 2 the patient has noted progressive angina symptoms occurring with less and less activity. Last night he went to bed and experienced a burning in his chest. He took a total of 6 sublingual nitroglycerin. After the 6 to sublingual nitroglycerin last evening the discomfort did not resolve so he woke up his . He notes being very scared. His Naye drove him to the ER. Fortunately the discomfort seemed to calm down on the way to the hospital however in the ER, when ambulating to the bathroom, he experienced recurrent discomfort consistent with his angina. He has not had any further angina since. Initial EKG revealed normal sinus rhythm at 63 bpm with a right bundle branch block, left anterior fascicular block, possible old septal infarct. A second EKG in the ER revealed normal sinus rhythm at 72 bpm with left axis deviation, right bundle branch block. High-sensitivity troponin 40.7 then 89.0 pg/mL. Resting echocardiography pending. Chest x-ray without acute process. Creatinine 1.28 mg/dL. LDL cholesterol 76 mg/dL. Patient notes having intermittent heartburn, taking pantoprazole as needed after reading that taking it every day could be harmful. Problem List: Chronic ischemic heart disease. Status post multiple coronary interventions with severe 3 vessel disease initially identified 2006. Evaluation at that time demonstrated 100% mid left anterior descending occlusion, 85% mid left circumflex occlusion and diffuse right coronary disease. Coronary interventions include stenting of left circumflex, multiple coronary interventions of the right coronary artery initially in 2006. Patient has undergone multiple interventions since including left main stent and right coronary artery stent 2012, serial interventions of the right coronary artery 2012 and 2017. Stent within a stent for ostial left main stenosis 2013. Last diagnostic coronary angiography 2019, 100% left anterior descending, 100% ostial right coronary artery with patent left main stent and poor surgical targets. Poor surgical targets were noted through teleconference though with [facility] offering surgical option. Chronic angina pectoris, NYHA class 3 Ischemic cardiomyopathy with mild left ventricular dysfunction Hyperlipidemia Type 2 diabetes mellitus with neuropathy Obstructive sleep apnea currently not on therapy Bilateral internal carotid artery disease Family History: Mother had multivessel coronary artery disease status post CABG, passing at the age of 72 with emphysema. Father at the age of 80 following a CVA. 15 brothers and sisters. Social History: Non-smoker. History of smokeless tobacco use having quit in 2006. Rare alcohol. No illegal drug use. Retired. . 3 children. Son, age 50, with history of tachycardia and status post pacemaker implantation. Allergies Allergy/AdvReac Type Severity Reaction Status Date / Time Sulfa (Sulfonamide AdvReac Mild liver & Verified 01/20/24 02:44 Antibiotics) kidney issues/failure, possible throat swelling Home Medications Medication Instructions Recorded Confirmed Type amlodipine 2.5 mg tablet 2.5 mg PO QAM 01/20/24 01/20/24 History aspirin 81 mg tablet,delayed 81 mg PO QPM 01/20/24 01/20/24 History release atorvastatin 20 mg tablet 20 mg PO QPM 01/20/24 01/20/24 History cholecalciferol (vitamin D3) 125 125 mcg PO WK 01/20/24 01/20/24 History mcg (5,000 unit) tablet (Vitamin D3) clopidogrel 75 mg tablet 75 mg PO QAM 01/20/24 01/20/24 History coenzyme Q10 100 mg capsule 100 mg PO DAILY 01/20/24 01/20/24 History (CoQ-10) diclofenac sodium 1 % topical gel 2 g topical QID PRN Pain 01/20/24 01/20/24 History empagliflozin 10 mg tablet 10 mg PO QAM 01/20/24 01/20/24 History (Jardiance) ezetimibe 10 mg tablet 10 mg PO QAM 01/20/24 01/20/24 History isosorbide dinitrate 5 mg tablet 5 mg PO DIRECTED PRN PRIOR TO 01/20/24 01/20/24 History ACTIVITIES THAT PROVOKE ANGINA isosorbide mononitrate 60 mg 60 mg PO QAM 01/20/24 01/20/24 History tablet,extended release 24 hr levothyroxine 50 mcg tablet 50 mcg PO DAILYBB 01/20/24 01/20/24 History lisinopril 2.5 mg tablet 2.5 mg PO QAM 01/20/24 01/20/24 History magnesium 250 mg tablet 250 mg PO DAILY 01/20/24 01/20/24 History metoprolol succinate 100 mg 100 mg PO QPM 01/20/24 01/20/24 History tablet,extended release 24 hr nitroglycerin 0.4 mg sublingual 0.4 mg sublingual DIRECTED PRN 01/20/24 01/20/24 History tablet Chest Pain pantoprazole 40 mg tablet,delayed 40 mg PO DAILY PRN 01/20/24 01/20/24 History release HEARTBURN/INDIGESTION ranolazine 1,000 mg 1,000 mg PO BID 01/20/24 01/20/24 History tablet,extended release,12 hr turmeric root extract 500 mg tablet 500 mg PO 3XWK 01/20/24 01/20/24 History Patient History Medical History Hyperlipidemia Diabetes Cardiac disease Surgical History H/O heart artery stent Social History Smoking Status: Former smoker Hx Alcohol Use: No Hx Substance Use: Yes Last Used Substance: Days (ago) Preferred Language: Congolese Communication Ability: Effective Chief Nuclear Medicine Technologist Required: No Beliefs That Will Affect Care: None Current Living Situation: Spouse Feels Safe at Home: Yes Safety Concerns: Feels Safe At This Time Assistive Devices: Glasses Review of Systems Review of Systems: Complete Review of Systems is as stated above, negative, or noncontributory. Physical Exam Physical Exam: General: A&Ox3. NAD. Comfortable and cooperative Skin: No rash. Excoriations on the lower extremities, without evidence of infection/cellulitis. Eyes: PER. Conjunctiva pink, sclera clear. HENT: Normocephalic. Atraumatic. Neck: Carotid bruits. No JVD. No HJR. Heart: Regular at 60 bpm. Soft early systolic murmur at the LLSB. No diastolic murmur. No rub Lungs: Clear to auscultation. Abdomen: +BS. Soft. Nontender. No masses. No organomegaly. Extremities: No clubbing, cyanosis, or edema. Pulses: radial=2/4, posterior tibial=2/4. Limited neurological examination: No focal deficit. Results & Data Vital Signs (Past 12 Hours) Vital Signs Temp Pulse Pulse Resp BP BP Pulse Ox 01/20/24 07:50 01/20/24 07:48 62 14 132/75 95 01/20/24 07:48 01/20/24 07:01 61 01/20/24 06:30 62 16 141/80 H 95 01/20/24 04:30 61 18 135/80 96 01/20/24 02:51 95 01/20/24 02:44 65 01/20/24 02:36 36.8 C 65 18 149/79 H 98 O2 Del Method O2 Del Method 01/20/24 07:50 Room Air 01/20/24 07:48 Room Air 01/20/24 07:48 Room Air 01/20/24 07:01 01/20/24 06:30 Room Air 01/20/24 04:30 Room Air 01/20/24 02:51 Room Air 01/20/24 02:44 01/20/24 02:36 Room Air Laboratory Results Cardiac Enzymes 01/20/24 01/20/24 Range/Units 02:51 05:30 AST 15 (13-39) U/L Troponin I High Sens 40.7 H 89.0 H* D (0-20) pg/ml Coagulation 01/20/24 Range/Units 02:51 PT 11.1 (9.0-12.0) Seconds APTT 24 (21-31) Seconds Lipids 01/20/24 Range/Units 05:30 Triglycerides 97 (0-150) mg/dl Cholesterol 154 (0-200) mg/dl HDL Cholesterol 59 mg/dl Cholesterol/HDL Ratio 2.6 (0-5) CBC 01/20/24 Range/Units 02:51 WBC 10.65 (4.8-10.8) K/ul RBC 5.17 (4.70-6.10) M/uL Hgb 16.5 (14.0-18.0) g/dl Hct 49.4 (42.0-52.0) % Plt Count 191 (130-400) K/uL Neut # (Auto) 9.30 H (1.40-6.50) K/uL Lymph # (Auto) 0.82 L (1.20-3.40) K/uL [place] # (Auto) 0.46 (0.11-0.59) K/uL Eos # (Auto) 0.00 (0.00-0.50) K/uL Baso # (Auto) 0.02 (0.00-0.20) K/uL Comprehensive Metabolic Panel 01/20/24 Range/Units 02:51 Sodium 139 (136-145) mmol/L Potassium 3.9 (3.5-5.1) mmol/L Chloride 104 (98-107) mmol/L Carbon Dioxide 26 (21-32) mmol/L BUN 22 (6-23) mg/dl Creatinine 1.28 (0.6-1.4) mg/dl Glucose 163 H (70-99(Fasting)) mg/dl Calcium 9.9 (8.6-10.3) mg/dl AST 15 (13-39) U/L ALT 18 (7-52) U/L Alkaline Phosphatase 64 (34-104) U/L Total Protein 6.9 (6.0-8.3) gm/dl Albumin 4.5 (3.4-5.0) gm/dl Intake and Output 01/19/24 01/20/24 01/20/24 22:59 06:59 14:59 Intake Total 500 / 500 Balance 500 / 500 Intake: IV 500 / 500 Sodium Chloride 0.9% 500 ml @ 500 / 500 999 mls/hr IV .Q31M STA Rx#: [id number] Other: Weight 84.2 kg Weight Measurement Method Chair Scale Diagnostic Findings June 19, 2021 TTE Interpretation Summary (as per Dr. Taylor): The left ventricular cavity size is normal. The qualitative LV ejection fraction is 55- 59% (normal). The left ventricular wall motion is normal. The right ventricular systolic function is normal as assessed by tricuspid annular plane systolic excursion (TAPSE) (normal >1.7 cm). The left atrium is normal sized. The right atrial size is normal. The left ventricular diastolic function is mildly abnormal (grade I). Mild aortic valve sclerosis is present. Aortic stenosis is absent Telemetry: Sinus in the 60's. No significant bradycardia. No AT/AF. No VT.
[2024-01-20] MEDS: CLOPIDOGREL BISULFATE 75 MG TAB PO SCH (08:40)
[2024-01-20] MEDS: ISOSORBIDE MONO EXTENDED REL 60 MG TABCR PO SCH (08:41)
[2024-01-20] MEDS: lisinopril 2.5 MG TAB PO SCH (08:41)
[2024-01-20] MEDS: amLODIPine BESYLATE 5 MG TAB PO SCH (08:41)
[2024-01-20] MEDS: RANOLAZINE 500 MG ER TAB PO SCH (08:41)
[2024-01-20] MEDS: EZETIMIBE 10 MG TAB PO SCH (08:41)
--- NOTE | 2024-01-20 11:49 | Hospitalist Progress Note ---
Date of Service January 20, 2024 Assessment & Plan (1) NSTEMI (non-ST elevated myocardial infarction): Plan: History of CAD status post stent and PVD troponin was 40.7 on admission and that went up to 89.0 after about 4 hours EKG is nondiagnostic given bifascicular block and echo of the heart demonstrated new wall motion abnormalities with hypokinesis of mid and apical septum and inferior wall Continue antiplatelet Rx, beta-felicia, statin Rx IV heparin Patient remains free from any chest pain during my examination Appreciate cardiology input and recommendation He will need emergent diagnostic cardiac cath He will be transferred to [place] under care of Dr. Kraus this afternoon Other significant medical conditions remained stable as below: hypertension, slightly elevated hyperlipidemia on statin Rx DM 2 on oral medications, well-controlled as of recent hemoglobin A1c of 7 last September 2023 ISS BG goal 1 10-1 40 past tobacco abuse DVT prophylaxis. IV heparin Full code Patient requesting updates providers. Naye Gee, contact #[phone]. Text document was generated using [employer] voice recognition software. It may contain grammatical or spelling errors. Kindly contact undersigned for clarification of any documentation item in question. Admission and Anticipated Discharge Date Admission Date: January 20, 2024 Subjective 01/20/2024 The patient was seen and examined in emergency room in presence of the He was admitted with chest pain and will need a cardiac cath to evaluate coronary status His troponin were increasing but he remained free of any chest pain during my examination He will be transferred to [facility] in [place] for diagnostic cardiac cath this afternoon Review of Systems Review of Systems: All systems reviewed and are unremarkable except as noted below Physical Exam Physical Exam: lying in bed without any acute distress Constitutional: well developed and well nourished; not ill appearing Eyes: PERRL, conjunctivae normal, anicteric sclerae ENMT: external ear and nose normal, oropharynx normal Neck: trachea midline, no thyromegaly Respiratory: no respiratory distress Auscultation: lungs clear to auscultation bilaterally Cardiovascular: Rate/Rhythm: regular rate and regular rhythm; not tachycardic Heart Sounds: normal S1 and normal S2; no murmur Extremities: no edema Gastrointestinal (Abdomen): Inspection/Auscultation: normal bowel sounds; abdomen not distended Percussion/Palpation: abdomen soft; abdomen nontender Musculoskeletal: no acute arthritis involving any of the joint Neurologic: normal touch/pain/proprioception and moves all extremities; no focal motor deficits Psychiatric: A+Ox3, euthymic affect Lymphatic: no cervical or axillary lymphadenopathy Results & Data Results & Data Vital Signs (Past 12 Hours) Vital Signs Temp Pulse Pulse Resp BP BP Pulse Ox 01/20/24 11:00 58 L 14 105/67 95 01/20/24 10:00 58 L 14 116/71 95 01/20/24 09:00 61 14 114/69 96 01/20/24 07:50 01/20/24 07:48 62 14 132/75 95 01/20/24 07:48 01/20/24 07:01 61 01/20/24 06:30 62 16 141/80 H 95 01/20/24 04:30 61 18 135/80 96 01/20/24 02:51 95 01/20/24 02:44 65 01/20/24 02:36 36.8 C 65 18 149/79 H 98 O2 Del Method O2 Del Method 01/20/24 11:00 Room Air 01/20/24 10:00 Room Air 01/20/24 09:00 Room Air 01/20/24 07:50 Room Air 01/20/24 07:48 Room Air 01/20/24 07:48 Room Air 01/20/24 07:01 01/20/24 06:30 Room Air 01/20/24 04:30 Room Air 01/20/24 02:51 Room Air 01/20/24 02:44 01/20/24 02:36 Room Air Laboratory Results Short CBC 01/20/24 Range/Units 02:51 WBC 10.65 (4.8-10.8) K/ul Hgb 16.5 (14.0-18.0) g/dl Hct 49.4 (42.0-52.0) % Plt Count 191 (130-400) K/uL BMP 01/20/24 02:51 Sodium 139 Potassium 3.9 Chloride 104 Carbon Dioxide 26 BUN 22 Creatinine 1.28 Glucose 163 H Calcium 9.9 Liver Function 01/20/24 Range/Units 02:51 Total Bilirubin 1.0 (0.2-1.0) mg/dl AST 15 (13-39) U/L ALT 18 (7-52) U/L Alkaline Phosphatase 64 (34-104) U/L Albumin 4.5 (3.4-5.0) gm/dl Medications Administered Current Inpatient Medications Acetaminophen (Acetaminophen 325 Mg Tab) 650 mg PO QID PRN PRN Reason: pain/fever Stop: 02/19/24 04:46 Amlodipine Besylate (Amlodipine Besylate 5 Mg Tab) 2.5 mg PO QAM [facility] Stop: 02/19/24 08:59 Last Admin: 01/20/24 08:41 Dose: 2.5 mg Aspirin (Aspirin 81 Mg Ectab) 81 mg PO QPM [facility] Stop: 02/19/24 20:59 Atorvastatin Calcium (Atorvastatin 20 Mg Tab) 20 mg PO QPM [facility] Stop: 02/19/24 20:59 Clopidogrel Bisulfate (Clopidogrel Bisulfate 75 Mg Tab) 75 mg PO QAM [facility] Stop: 02/19/24 08:59 Last Admin: 01/20/24 08:40 Dose: Not Given Dextrose (Dextrose 50% 50 Ml Syringe) 25 - 50 ml IV UD PRN; Protocol PRN Reason: Hypoglycemia Protocol Stop: 02/19/24 04:45 Diclofenac Sodium (Diclofenac Sod 1% Gel 100 Gm Tube) 2 gm EXT QID PRN; Protocol PRN Reason: Pain Stop: 02/19/24 05:24 Ezetimibe (Ezetimibe 10 Mg Tab) [facility] Stop: 02/19/24 08:59 Last Admin: 01/20/24 08:41 Dose: 10 mg Glucagon (Glucagon For Inj 1 Mg Vial) 1 mg SQ UD PRN; Protocol PRN Reason: Hypoglycemia Protocol Stop: 02/19/24 04:45 Glucose (Glucose 40% Gel 15 Gm Tube) 15 - 30 gm PO UD PRN; Protocol PRN Reason: Hypoglycemia Protocol Stop: 02/19/24 04:45 Glucose (Glucose 10 Tab/Tube) 4 - 8 tab PO UD PRN; Protocol PRN Reason: Hypoglycemia Treatment Stop: 02/19/24 04:45 Lactated Ringer's (Lr) 1,000 mls @ 60 mls/hr IV .[id number] Stop: 01/20/24 20:52 Last Admin: 01/20/24 05:22 Dose: 60 mls/hr Heparin Sodium/Dextrose (Heparin Sodium/Dextrose) 25,000 units in 500 mls @ 28 mls/hr IV .[id number] [facility]; Protocol Stop: 02/19/24 05:14 Last Admin: 01/20/24 05:40 Dose: 1,400 units/hr, 28 mls/hr Promethazine HCl 6.25 mg/ (Sodium Chloride) 50.25 mls @ 201 mls/hr IV Q6H PRN PRN Reason: Nausea And Vomiting Stop: 02/19/24 04:46 Insulin Aspart (Insulin Aspart Per Unit Charge) 0 units SC Q6 [facility] Stop: 02/19/24 05:59 Last Admin: 01/20/24 07:50 Dose: Not Given Isosorbide Mononitrate (Isosorbide [place] Extended Rel 60 Mg Tabcr) 60 [facility] [place] Stop: 02/19/24 08:59 Last Admin: 01/20/24 08:41 Dose: 60 mg Levothyroxine Sodium (Levothyroxine Sodium 50 Mcg Tablet) 50 mcg PO DAILYBB [facility] Stop: 02/19/24 06:29 Last Admin: 01/20/24 07:44 Dose: 50 mcg Lisinopril (Lisinopril 2.5 Mg Tab) 2.5 mg PO [facility] Stop: 02/19/24 08:59 Last Admin: 01/20/24 08:41 Dose: 2.5 mg Lorazepam (Lorazepam 0.5 Mg Tab) 0.5 mg PO TID PRN PRN Reason: Anxiety Stop: 02/19/24 04:46 Metoprolol Succinate (Metoprolol Succ 50mg Ext Rel Tab) 100 mg PO QPM [facility] Stop: 02/19/24 20:59 Miscellaneous (Carbohydrates For Hypoglycemia ) 15 - 30 gm PO UD PRN PRN Reason: Hypoglycemia Protocol Stop: 02/19/24 04:45 Nitroglycerin (Nitroglycerin Sl 0.4 Mg/Tab Tab) 0.4 mg SL Q5M PRN PRN Reason: Chest Pain Stop: 02/19/24 04:45 Pantoprazole Sodium (Pantoprazole 40 Mg Tab) 40 mg PO DAILY PRN PRN Reason: HEARTBURN/INDIGESTION Stop: 02/19/24 05:24 Ranolazine (Ranolazine 500 Mg Er Tab) 1,000 mg PO BID [facility] Stop: 02/19/24 08:59 Last Admin: 01/20/24 08:41 Dose: 1,000 mg Tramadol HCl (Tramadol Hcl 50 Mg Tablet) 25 - 50 mg PO Q4H PRN PRN Reason: Pain Stop: 02/19/24 04:46
[2024-01-20 19:26] LABS: ANTI-Xa, UFH(UnfractionatedHep 1.07 IU/ml (0.3-0.7)
[2024-01-20] MEDS: ASPIRIN 81 MG ECTAB PO SCH (20:55)
[2024-01-20] MEDS: ATORVASTATIN 20 MG TAB PO SCH (20:57)
--- NOTE | 2024-01-20 20:59 | Electrocardiogram Report ---
Test Reason : Blood Pressure : / mmHG Vent. Rate : 072 BPM Atrial Rate : 072 BPM P-R Int : 154 ms QRS Dur : 148 ms QT Int : 448 ms P-R-T Axes : 057 270 080 degrees QTc Int : 490 ms Normal sinus rhythm Left axis deviation Right bundle branch block Abnormal ECG When compared with ECG of 20-JAN-2024 02:45, No significant change Confirmed by Alvin Perez ([id number]) on 01/20/2024 8:58:42 PM Referred By: REFERRED SELF Confirmed By:Alvin Perez
[2024-01-20] MEDS: METOPROLOL SUCC 50MG EXT REL TAB PO SCH (21:02)
--- NOTE | 2024-01-21 08:21 | Discharge Summary ---
Date of Service January 21, 2024 Admission HPI Per Admitting Provider History obtained from patient, family, and records. Medical history significant for CAD status post stent, PVD, hypertension, hyperlipidemia, ROGERS not on CPAP, DM 2 on oral medications, past tobacco abuse. 1 week history of worsening of usual anginal pain symptoms. Substernal pain going to the neck and arm. Incomplete relief with nitroglycerin. Would happen even at rest which is unusual for him. May be related to increased exertion secondary to pulled muscle in the right leg last week. Compliant with home medications. Chest pain relieved by nitroglycerin administration at the ER. Medical History as above Surgical History : None Family History : COPD, heart disease Personal/Social history : Past tobacco abuse, occasional EtOH intake, [employer] Admission Exam Per Admitting Provider Physical Exam: GENERAL: Comfortable, pleasant, no respiratory distress SKIN: Normal color, warm HEENT: Partial alopecia, pink palpebral conjunctivae, no ptosis, moist buccal mucosa NECK : Supple, no tenderness CHEST : CTA, no tenderness HEART : RRR, no obvious murmurs ABDOMEN: Some distention, nontender EXTREMITIES : No LE swelling, minimal R thigh tenderness, no other conspicuous deformities noted NEUROLOGIC : Coherent, no facial asymmetry, no other gross focality Principal Diagnosis NSTEMI,Chest pain,ASCVD Discharge Exam lying in bed without any acute distress Constitutional well developed and well nourished; not ill appearing Eyes PERRL, conjunctivae normal, anicteric sclerae ENMT external ear and nose normal, oropharynx normal Neck trachea midline, no thyromegaly Respiratory no respiratory distress Auscultation: lungs clear to auscultation bilaterally Cardiovascular Rate/Rhythm: regular rate and regular rhythm; not tachycardic Heart Sounds: normal S1 and normal S2; no murmur Extremities: no edema Gastrointestinal (Abdomen) Inspection/Auscultation: normal bowel sounds; abdomen not distended Percussion/Palpation: abdomen soft; abdomen nontender Neurologic normal touch/pain/proprioception and moves all extremities; no focal motor deficits Psychiatric A+Ox3, euthymic affect Lymphatic no cervical or axillary lymphadenopathy Discharge Data Allergies Allergy/AdvReac Type Severity Reaction Status Date / Time Sulfa (Sulfonamide AdvReac Mild liver & Verified 01/20/24 02:44 Antibiotics) kidney issues/failure, possible throat swelling Consultations 01/20/24 05:25 Consult Cardiology Routine Hospital Course (1) NSTEMI (non-ST elevated myocardial infarction): History of CAD status post stent and PVD troponin was 40.7 on admission and that went up to 89.0 after about 4 hours EKG is nondiagnostic given bifascicular block and echo of the heart demonstrated new wall motion abnormalities with hypokinesis of mid and apical septum and inferior wall Continue antiplatelet Rx, beta-felicia, statin Rx IV heparin Patient remains free from any chest pain during my examination Appreciate cardiology input and recommendation He will need emergent diagnostic cardiac cath He will be transferred to [facility] under care of Dr. Kraus this afternoon Other significant medical conditions remained stable as below: hypertension, slightly elevated hyperlipidemia on statin Rx DM 2 on oral medications, well-controlled as of recent hemoglobin A1c of 7 last September 2023 ISS BG goal 1 10-1 40 past tobacco abuse DVT prophylaxis. IV heparin Full code Patient requesting updates providers. Ms. Naye Gee, contact #[phone]. Text document was generated using [employer] voice recognition software. It may contain grammatical or spelling errors. Kindly contact undersigned for clarification of any documentation item in question. Total Time Total Time Spent Total Time Spent (In Minutes): 35 minutes Discharge Plan Discharge Items Patient Disposition: Transfer Acute Care Hospital Reason For Visit: ACS Discharge Diagnosis: NSTEMI,Chest pain,ASCVD Condition on Discharge: Fair Activity: As commented below Activity Comment: Follow the discharge instruction from the Hospital Non-emergency contact: Primary Care Provider Call non-emergency contact if: you have any medication questions and your symptoms worsen Follow-up/Referrals: Benja Velasquez [Primary Care Provider] - (Please make an appointment with your PCP within 7 days following discharge from the facility) Diet: Other - See Diet Comment Diet Comment: NPO Addtl Attending Provider Instructions: Current in patient medications as below: Current Inpatient Medications Acetaminophen (Acetaminophen 325 Mg Tab) 650 mg PO QID PRN PRN Reason: pain/fever Stop: 02/19/24 04:46 Amlodipine Besylate (Amlodipine Besylate 5 Mg Tab) 2.5 mg PO QAM [facility] Stop: 02/19/24 08:59 Last Admin: 01/20/24 08:41 Dose: 2.5 mg Aspirin (Aspirin 81 Mg Ectab) 81 mg PO QPM [facility] Stop: 02/19/24 20:59 Atorvastatin Calcium (Atorvastatin 20 Mg Tab) 20 mg PO QPM [facility] Stop: 02/19/24 20:59 Clopidogrel Bisulfate (Clopidogrel Bisulfate 75 Mg Tab) 75 mg PO QAM [facility] Stop: 02/19/24 08:59 Last Admin: 01/20/24 08:40 Dose: Not Given Dextrose (Dextrose 50% 50 Ml Syringe) 25 - 50 ml IV UD PRN; Protocol PRN Reason: Hypoglycemia Protocol Stop: 02/19/24 04:45 Diclofenac Sodium (Diclofenac Sod 1% Gel 100 Gm Tube) 2 gm EXT QID PRN; Protocol PRN Reason: Pain Stop: 02/19/24 05:24 Ezetimibe (Ezetimibe 10 Mg Tab) 10 mg PO [facility] Stop: 02/19/24 08:59 Last Admin: 01/20/24 08:41 Dose: 10 mg Glucagon (Glucagon For Inj 1 Mg Vial) 1 mg SQ UD PRN; Protocol PRN Reason: Hypoglycemia Protocol Stop: 02/19/24 04:45 Glucose (Glucose 40% Gel 15 Gm Tube) 15 - 30 gm PO UD PRN; Protocol PRN Reason: Hypoglycemia Protocol Stop: 02/19/24 04:45 Glucose (Glucose 10 Tab/Tube) 4 - 8 tab PO UD PRN; Protocol PRN Reason: Hypoglycemia Treatment Stop: 02/19/24 04:45 Lactated Ringer's (Lr) 1,000 mls @ 60 mls/hr IV .[id number] Stop: 01/20/24 20:52 Last Admin: 01/20/24 05:22 Dose: 60 mls/hr Heparin Sodium/Dextrose (Heparin Sodium/Dextrose) 25,000 units in 500 mls @ 28 mls/hr IV .[id number] [facility]; Protocol Stop: 02/19/24 05:14 Last Admin: 01/20/24 05:40 Dose: 1,400 units/hr, 28 mls/hr Promethazine HCl 6.25 mg/ (Sodium Chloride) 50.25 mls @ 201 mls/hr IV Q6H PRN PRN Reason: Nausea And Vomiting Stop: 02/19/24 04:46 Insulin Aspart (Insulin Aspart Per Unit Charge) 0 units SC Q6 [facility] Stop: 02/19/24 05:59 Last Admin: 01/20/24 07:50 Dose: Not Given Isosorbide Mononitrate (Isosorbide [place] Extended Rel 60 Mg Tabcr) 60 mg PO QAM [facility] Stop: 02/19/24 08:59 Last Admin: 01/20/24 08:41 Dose: 60 mg Levothyroxine Sodium (Levothyroxine Sodium 50 Mcg Tablet) 50 mcg PO DAILYBB [facility] Stop: 02/19/24 06:29 Last Admin: 01/20/24 07:44 Dose: 50 mcg Lisinopril (Lisinopril 2.5 Mg Tab) 2.5 mg PO QAM [facility] Stop: 02/19/24 08:59 Last Admin: 01/20/24 08:41 Dose: 2.5 mg Lorazepam (Lorazepam 0.5 Mg Tab) 0.5 mg PO TID PRN PRN Reason: Anxiety Stop: 02/19/24 04:46 Metoprolol Succinate (Metoprolol Succ 50mg Ext Rel Tab) 100 mg PO QPM [facility] Stop: 02/19/24 20:59 Miscellaneous (Carbohydrates For Hypoglycemia ) 15 - 30 gm PO UD PRN PRN Reason: Hypoglycemia Protocol Stop: 02/19/24 04:45 Nitroglycerin (Nitroglycerin Sl 0.4 Mg/Tab Tab) 0.4 mg SL Q5M PRN PRN Reason: Chest Pain Stop: 02/19/24 04:45 Pantoprazole Sodium (Pantoprazole 40 Mg Tab) 40 mg PO DAILY PRN PRN Reason: HEARTBURN/INDIGESTION Stop: 02/19/24 05:24 Ranolazine (Ranolazine 500 Mg Er Tab) 1,000 mg PO BID [facility] Stop: 02/19/24 08:59 Last Admin: 01/20/24 08:41 Dose: 1,000 mg Tramadol HCl (Tramadol Hcl 50 Mg Tablet) 25 - 50 mg PO Q4H PRN PRN Reason: Pain Stop: 02/19/24 04:46 Pending Studies at Discharge: No Stand-Alone Forms: [facility] Skilled Items Patient informed of condition?: Yes DNR: No Discharge Level of Care: Other Communicable Disease: No Discharge Prognosis: Stable Lines: Peripheral IV Urinary Catheter: No Medications and DC Order Prescriptions: Continued atorvastatin 20 mg tablet 20 mg PO QPM metoprolol succinate 100 mg tablet extended release 24 hr 100 mg PO QPM amlodipine 2.5 mg tablet 2.5 mg PO QAM clopidogrel 75 mg tablet 75 mg PO QAM aspirin 81 mg Tablet,Delayed Release (Dr/Ec) 81 mg PO QPM isosorbide mononitrate 60 mg tablet extended release 24 hr 60 mg PO QAM levothyroxine 50 mcg tablet 50 mcg PO DAILYBB pantoprazole 40 mg tablet,delayed release (DR/EC) 40 mg PO DAILY PRN (Reason: HEARTBURN/INDIGESTION) nitroglycerin 0.4 mg tablet, sublingual 0.4 mg sublingual DIRECTED PRN (Reason: Chest Pain) magnesium 250 mg Tablet 250 mg PO DAILY lisinopril 2.5 mg tablet 2.5 mg PO QAM isosorbide dinitrate 5 mg tablet 5 mg PO DIRECTED PRN (Reason: PRIOR TO ACTIVITIES THAT PROVOKE ANGINA) ezetimibe 10 mg tablet 10 mg PO QAM coenzyme Q10 [CoQ-10] 100 mg Capsule 100 mg PO DAILY ranolazine 1,000 mg tablet extended release 12 hr 1,000 mg PO BID diclofenac sodium [Voltaren] 1 % Gel 2 g TOPICAL QID PRN (Reason: Pain) cholecalciferol (vitamin D3) [Vitamin D3] 125 mcg (5,000 unit) Tablet 125 mcg PO WK Jardiance 10 mg tablet 10 mg PO QAM turmeric root extract 500 mg Tablet 500 mg PO [id number] Rx Instructions: MON, FRI, & FRI Discharge Orders: Discharge Order (Routine); Ordered 01/20/24 Ordered By: Miguel Gutierrez Admission Data Admit Date/Time: 01/20/24 04:45 Attending Provider: Miguel Gutierrez Admit Provider: Hiram Liang Primary Care Provider: Benja Velasquez Other Providers: Shabana Almaraz; Gregor Vieyra; Bernard Grewal; Ramo Alford; Logan Taylor; Eliezer Veras; Britany Lay; Starr Carpenter; Neva Anne Ashley M.; Ethan Conley; Ramón Sapp; Ginger Chapa; Christen Louis; Aline Casillas; Angeli Duran; Santino Evangelista; Génesis Zamarripa
== END 2024-01-21 02:00 | disposition short-term general hospital (02) | DRG 281 ==
LOC: ED 02:32 → EDINP 04:45